=== PATIENT | female | born 1955 | race Caucasian/White ===

== ENCOUNTER 2017-12-15 14:04 | Emergency (ER) | payer OTHER ==
[~2017-12-15] VITALS: Ht 167.6 cm; Wt 90.7 kg
[~2017-12-15 14:04] MED LIST: AMIT75TA PO; ATOR40TA PO; DILT180C2 PO; FLEC100T PO; METF500T4 PO; METH-3 PO; METO25TA4 PO; MONT10TA6 PO; SULI200T2 PO; SUMA50TA3 PO
[2017-12-15 14:24] VITALS: BP 175/80
[2017-12-15] MEDS ORDERED: FENO160T PO (14:32)
[2017-12-15] MEDS ORDERED: SOTA80TA PO (14:32)
[2017-12-15] MEDS ORDERED: RIVA10TA PO (14:32)
[2017-12-15] MEDS ORDERED: ROPI0.5T PO (14:32)
[2017-12-15] MEDS ORDERED: DIPY75TA PO (14:32)
--- NOTE | 2017-12-15 14:33 | NUR ---
ARRIVAL PATIENT ARRIVED TO ED[facility] AMBULATORY WITH FAMILY, C/O OF MIGRAINE THAT STARTED THIS MORNING, DOES HAVE A HISTORY OF MIGRAINES AND TOOK IMITREX WITH NO RELIEF. CAME TO ED FOR EVAL.
[2017-12-15] MEDS ORDERED: PHENERGAN IM STA (14:53)
[2017-12-15] MEDS ORDERED: NUBAIN IM STA (14:53)
--- NOTE | 2017-12-15 14:59 | ER.PDOC ---
General Chief Complaint: Headache Stated Complaint: MIGRANE Time seen by MD: 14:54 Source: patient Exam Limitations: no limitations History of Present Illness Initial Comments Migraine headache since this morning. Headache similar to previous migraine. Severity/Quality: moderate Prior Headaches/Recent Trauma: chronic headaches, occasional headaches Associated Symptoms: nausea/vomiting, sensitivity to light Prior symptoms/Treatment: Similar symptoms previous Allergies: Coded Allergies: aspirin (Verified Allergy, Severe, Anaphylaxis Shock, 07/07/14) morphine (Verified Allergy, Mild, Nausea, 07/07/14) codeine (Verified Adverse Reaction, Mild, Nausea, 07/07/14) Home Meds Reported Medications Rivaroxaban (XARELTO) 10 Mg Tablet, 1 TAB PO DAILY, #7 TAB 12/15/17 Ropinirole Hcl (REQUIP) 0.5 Mg Tablet, 1 TAB PO HS, #30 TAB 2 Refills 12/15/17 Dipyridamole (DIPYRIDAMOLE) 75 Mg Tablet, 75 MG PO DAILY24, TABLET 12/15/17 Fenofibrate (FENOFIBRATE) 160 Mg Tablet, 1 TAB PO DAILY, #90 TAB 3 Refills 12/15/17 Sotalol Hcl (SOTALOL) 80 Mg Tablet, 1 TAB PO BID, #180 TAB 3 Refills 12/15/17 Methocarbamol (ROBAXIN) 500 Mg Tablet, 1 TAB PO TID, #90 TAB 11/16/15 Montelukast Sodium (SINGULAIR) 10 Mg Tablet, 1 TAB PO DAILY, #90 TAB 1 Refill 11/16/15 Atorvastatin 40MG (LIPITOR 40MG) 40 Mg Tablet, 1 TAB PO HS, #90 TAB 1 Refill 11/16/15 Metformin Hcl (METFORMIN HCL) 500 Mg Tablet, 2 TAB PO BID, #60 TAB 3 Refills 11/16/15 Amitriptyline Hcl (AMITRIPTYLINE HCL) 75 Mg Tablet, 1 TAB PO HS, #30 TAB 3 Refills 11/16/15 Diltiazem Hcl (CARDIZEM CD) 180 Mg Cap.er.24h, 1 CAP PO DAILY, #90 CAP 1 Refill 07/07/14 Sumatriptan Succinate (IMITREX) 50 Mg Tablet, 50 MG PO Y for PAIN, TABLET 07/07/14 Discontinued Reported Medications Sulindac (SULINDAC) 200 Mg Tablet, 200 MG PO BID, TABLET 11/16/15 Flecainide Acetate (FLECAINIDE ACETATE) 100 Mg Tablet, 1 TAB PO BID, #60 TAB 5 Refills 07/07/14 Metoprolol Tartrate 25MG (LOPRESSER 25MG) 25 Mg Tablet, 1 TAB PO BID, #180 TAB 1 Refill 07/07/14 Past Medical History Medical History: asthma, cardiac problems, other (MIgraine) Surgical History: cardiac cath, appendectomy, , hysterectomy, knee Social History Smoking: non-smoker Alcohol Use: none Drug Use: none Review of Systems Constitutional: no symptoms reported Eyes: see HPI Respiratory: no symptoms reported Cardiovascular: no symptoms reported Gastrointestinal: see HPI Genitourinary: no symptoms reported All Other Systems: Reviewed and Negative Physical Exam General Appearance: No Apparent Distress, WD/WN ENT: nml ENT inspection Neck: nml inspection, Supple Cardiovascular: Normal Peripheral Pulses, Regular Rate, Rhythm, No Edema, No Gallop, No JVD, No Murmur Respiratory: chest non-tender, lungs clear, normal breath sounds, no respiratory distress, no accessory muscle use Gastrointestinal: Normal Bowel Sounds, No Organomegaly, No Pulsatile Mass, Non Tender, Soft Back: Normal Inspection, No CVA Tenderness, No Vertebral Tenderness Extremities: Normal Range of Motion, Non-Tender, Normal Inspection, No Pedal Edema, No Calf Tenderness, Normal Capillary Refill Psychiatric: Alert, Oriented x 3 Cranial Nerves: Normal Hearing, Normal Speech, PERRL Motor/Sensory: No Motor Deficit, No Sensory Deficit, No Pronator Drift, Negative Babinski's Sign Skin: Warm/Dry, Normal Color Progress Progress Patient refused to have a head CT done. Departure Time of Disposition: 14:58 Disposition: 01 HOME, SELF-CARE Impression: Primary Impression: Migraine Qualified Codes: G43.911 - Migraine, unspecified, intractable, with status migrainosus Condition: Improved Referrals: ISRAEL ROYAL (PCP) PRIMARY CARE PROVIDER Additional Instructions: Continue home medications F/U with your PCP in 2-3 days Duration or Time Spent with Pa: 30 mins MAX KEY MD Dec 15, 2017 14:59
[2017-12-15] MEDS ORDERED: PHENERGAN ONE (15:00)
[2017-12-15] MEDS ORDERED: NUBAIN ONE (15:00)
[2017-12-15 15:37] VITALS: BP 157/75
[2017-12-15 15:43] VITALS: BP 157/75
== END 2017-12-15 15:37 | disposition home or self-care (01) ==
LOC: ER 14:04
DX: G43.909 Migraine, unspecified, not intractable, without status migrainosus (principal); J45.909 Unspecified asthma, uncomplicated; Z88.5 Allergy status to narcotic agent; Z90.710 Acquired absence of both cervix and uterus; Z79.899 Other long term (current) drug therapy; Z88.8 Allergy status to other drugs, medicaments and biological substances
CPT/HCPCS: 96372 ×2; 99284; J2300; J2550

== ENCOUNTER 2020-11-12 15:26 | Emergency (ER) | payer MEDICARE, OTHER ==
[~2020-11-12] VITALS: Ht 170.2 cm; Wt 81.6 kg
[~2020-11-12 15:26] MED LIST changes: +DIPY75TA PO; +FENO160T PO; +METF500T17 PO; -METF500T4 PO; +RIVA10TA PO; +ROPI0.5T PO; +SOTA80TA PO
--- NOTE | 2020-11-12 15:30 | NUR ---
ARRIVAL PT ARRIVED TO ED WITH C/O HEADACHE THAT STARTED AROUND 1000. PT STATES PAIN IS ON ENTIRE HEAD WITH LIGHT AND SOUND SENSATIVITY AND VOMITTING. PT REPORTS TAKING IMMATREX WITH NO RELIEF. BEDSIDE MONITORS APPLIED. VITAL SIGNS STABLE. BED IN LOW LOCKED POSITION. DAUGHTER AT BEDSIDE.
[2020-11-12 15:37] VITALS: BP 181/69
[2020-11-12] MEDS ORDERED: SUBLIMAZE IM STA (15:42)
[2020-11-12] MEDS ORDERED: BENADRYL IM STA (15:42)
[2020-11-12] MEDS ORDERED: PHENERGAN IM STA (15:42)
[2020-11-12] MEDS ORDERED: SUBLIMAZE ONE (15:47)
[2020-11-12] MEDS ORDERED: PHENERGAN ONE (15:47)
[2020-11-12] MEDS ORDERED: BENADRYL ONE (15:47)
--- NOTE | 2020-11-12 15:47 | ER.PDOC ---
General Chief Complaint: Requesting Medical Care Stated Complaint: MIGRANE Time seen by MD: 15:39 Source: patient Exam Limitations: no limitations History of Present Illness Initial Comments 65-year-old female presents to the emergency department with complaint of severe migraine headache. Her last migraine headache similar to this was 2 years ago. Headache started this morning unilateral, but gradually progressed to bilateral throughout the day. It was unrelieved with her usual dose of Imitrex at home. She has photophobia and some nausea but no vomiting. She denies any acute visual change. She denies any fever or neck pain or stiffness. She has had a similar headache to this in the past. She does have a positive history of migraine headaches. Timing/Duration: 4-6 hours Severity/Quality: severe, constant Prior Headaches/Recent Trauma: no recent headache/trauma, occasional headaches Associated Symptoms: nausea/vomiting (nausea without vomiting), sensitivity to light Prior symptoms/Treatment: Similar symptoms previous Allergies: Coded Allergies: aspirin (Verified Allergy, Severe, Anaphylaxis Shock, 07/07/14) morphine (Verified Allergy, Mild, Nausea, 07/07/14) codeine (Verified Adverse Reaction, Mild, Nausea, 07/07/14) Home Meds Reported Medications Rivaroxaban (XARELTO) 10 Mg Tablet, 1 TAB PO DAILY, #7 TAB 12/15/17 Ropinirole Hcl (REQUIP) 0.5 Mg Tablet, 1 TAB PO HS, #30 TAB 2 Refills 12/15/17 Dipyridamole (DIPYRIDAMOLE) 75 Mg Tablet, 75 MG PO DAILY24, TABLET 12/15/17 Fenofibrate (FENOFIBRATE) 160 Mg Tablet, 1 TAB PO DAILY, #90 TAB 3 Refills 12/15/17 Sotalol Hcl (SOTALOL) 80 Mg Tablet, 1 TAB PO BID, #180 TAB 3 Refills 18 Methocarbamol (ROBAXIN) 500 Mg Tablet, 1 TAB PO TID, #90 TAB 16 Montelukast Sodium (SINGULAIR) 10 Mg Tablet, 1 TAB PO DAILY, #90 TAB 1 Refill 11/16/15 Atorvastatin 40MG (LIPITOR 40MG) 40 Mg Tablet, 1 TAB PO HS, #90 TAB 1 Refill 11/16/15 Metformin Hcl (METFORMIN HCL) 500 Mg Tablet, 2 TAB PO BID, #60 TAB 3 Refills 11/16/15 Amitriptyline Hcl (AMITRIPTYLINE HCL) 75 Mg Tablet, 1 TAB PO HS, #30 TAB 3 Refills 11/16/15 Diltiazem Hcl (CARDIZEM CD) 180 Mg Cap.er.24h, 1 CAP PO DAILY, #90 CAP 1 Refill 07/07/14 Sumatriptan Succinate (IMITREX) 50 Mg Tablet, 50 MG PO PRN for PAIN, TABLET 07/07/14 Past Medical History Medical History: other (migraine headaches) Surgical History: cardiac cath, appendectomy, , hysterectomy, knee Family History Significant Family History: no pertinent family hx Social History Smoking: non-smoker Alcohol Use: none Drug Use: none Review of Systems Constitutional: denies no symptoms reported, denies see HPI, denies chills, denies diaphoresis, denies fever, denies malaise, denies weakness, denies other Eyes: denies no symptoms reported, denies see HPI, denies blindness, denies blurred vision, denies drainage, denies decreased acuity, denies foreign body sensation, denies inflammation, denies pain; photophobia; denies previous injur y, denies shadows, denies tunnel vision, denies vision change, denies contact lenses, denies glasses, denies other Ears, Nose, Mouth, Throat: denies no symptoms reported, denies see HPI, denies ear pain, denies ear discharge, denies nose pain, denies nose discharge, denies epistaxis, denies mouth pain, denies mouth swelling, denies loose teeth, denies throat pain, denies throat swelling Respiratory: denies no symptoms reported, denies see HPI, denies cough, denies orthopnea, denies shortness of breath, denies stridor, denies wheezing, denies other Cardiovascular: denies no symptoms reported, denies see HPI, denies chest pain, denies edema, denies palpitations, denies syncope, denies other Gastrointestinal: denies no symptoms reported, denies see HPI, denies abdominal pain, denies constipation, denies diarrhea, denies nausea, denies vomiting, denies other Musculoskeletal: denies no symptoms reported, denies see HPI, denies back pain, denies gout, denies joint pain, denies joint swelling, denies muscle pain, denies muscle stiffness, denies neck pain, denies other Skin: denies no symptoms reported, denies see HPI, denies change in color, denies change in hair/nails, denies dryness, denies lesions, denies lumps, denies rash, denies other Psychiatric/Neurological: denies no symptoms reported, denies see HPI, denies anxiety, denies depressed, denies emotional problems; headache; denies numbness, denies paresthesia, denies pre-existing deficit, denies seizure, denies ting ling, denies tremors, denies weakness, denies other All Other Systems: Reviewed and Negative Physical Exam General Appearance: No Apparent Distress, WD/WN Head/Eyes: no nystagmus, PERRL ENT: nml ENT inspection, pharynx nml Neck: nml inspection, Supple Cardiovascular: Regular Rate, Rhythm, No Murmur Respiratory: normal breath sounds, no respiratory distress, no accessory muscle use Gastrointestinal: Normal Bowel Sounds, No Organomegaly Extremities: Non-Tender, Normal Inspection, No Pedal Edema, No Calf Tenderness Psychiatric: Alert, Oriented x 3 Cranial Nerves: Normal Hearing, Normal Speech, PERRL Motor/Sensory: No Motor Deficit Skin: Warm/Dry, Normal Color Results/Orders Results/Orders Orders - ALIYA ROQUE DO Promethazine Hcl (Phenergan) (11/12/20 15:42) Diphenhydramine Hcl (Benadryl) (11/12/20 15:42) Fentanyl Citrate/Pf (Sublimaze) (11/12/20 15:42) Ct Head Wo Contrast (11/12/20 17:13) Diazepam (Valium) (11/12/20 17:13) Vital Signs Date Time Temp Pulse Resp B/P (MAP) Pulse Ox O2 Delivery O2 Flow Rate FiO2 11/12/20 16:30 98.3 76 18 173/75 (107) 95 Room Air 11/12/20 15:37 98.3 74 18 95 11/12/20 15:37 98.3 74 18 181/69 (106) 95 Room Air 11/12/20 15:37 98.3 74 18 Administered Medications Medications (Trade) Dose Ordered Sig/Leighann Route PRN Reason Start Time Stop Time Status Last Admin Dose Admin Diazepam (Valium) 10 mg STAT STAT IM 11/12/20 17:13 11/12/20 17:14 UNV 11/12/20 17:16 10 MG Diphenhydramine HCl (Benadryl) 50 mg STAT STAT IM 11/12/20 15:42 11/12/20 15:43 UNV 11/12/20 15:55 50 MG Fentanyl Citrate (Sublimaze) 100 mcg STAT STAT IM 11/12/20 15:42 11/12/20 15:43 UNV 11/12/20 15:56 100 MCG Promethazine HCl (Phenergan) 50 mg STAT STAT IM 11/12/20 15:42 11/12/20 15:43 UNV 11/12/20 15:55 50 MG Progress Progress patient refused to leave after injections, stating she was unchanged from arrival; I explained I had given maximum doses of phenergan, benadryl and fentanyl and offered IM benzo for muscle relaxation and decided to scan her head to be sure there is no bleeding; patient somewhat improved after valium administration and desires to try to go home to rest EKG/XRAY/CT/US CT Comments: CT brain normal ER DEPART Departure Time of Disposition: 17:46 Disposition: 01 HOME, SELF-CARE Impression: Primary Impression: Migraine Additional Impression: Tension headache Condition: Stable Patient Instructions: Migraine Headache, Tension Headache Referrals: ISRAEL ROYAL (PCP) PRIMARY CARE PROVIDER Additional Instructions: Home to rest in a dark quiet place, no TV, no radio, no telephone, no computer, no crying children. Return to the emergency department if headache escalates or worsens, acute visual change, fever greater than 101.3, or neck pain or stiffness. Follow-up with your primary care physician later this week for reevaluation. Duration or Time Spent with Pa: 45 min Problem Qualifiers Primary Impression: Migraine Migraine type: without aura Status migrainosus presence: without status migrainosus Intractability: not intractable Qualified Codes: G43.009 - Migraine without aura, not intractable, without status migrainosus ALIYA ROQUE DO Nov 12, 2020 15:47
[2020-11-12 16:30] VITALS: BP 173/75
[2020-11-12] MEDS ORDERED: VALIUM IM STA (17:13)
[2020-11-12] MEDS ORDERED: VALIUM ONE (17:16)
--- NOTE | 2020-11-12 17:31 | NUR ---
CT PT BACK FROM CT.
--- NOTE | 2020-11-12 17:39 | DIREP ---
PROCEDURE:CT HEAD WITHOUT CONTRAST TECHNIQUE:Axial cuts were obtained through the head, without intravenous contrast material. The images were viewed at brain and bone settings. COMPARISON:MR, MRI BRAIN W/WO, 10/14/2019, 03:12 PM. [facility] MRI and Spiral CT, MR, MRI BRAIN W/WO, 10/08/2020, 02:57 PM. INDICATIONS:severe headache FINDINGS: VENTRICLES:Normal. CEREBRUM:Normal. The small hyperintensities noted in the periventricular deep white matter on MRI scans of the brain dated 10/14/2019 and 10/08/[address] CEREBELLUM:Normal. BRAINSTEM:Normal. SKULL:Normal. SINUSES:Normal. OTHER:Negative. CONCLUSION: 1. Normal CT scan of the brain. Dictated by: Aleksey Hamilton M.D. on 11/12/2020 at 05:36 PM
[2020-11-12 17:50] VITALS: BP 160/63
== END 2020-11-12 17:53 | disposition home or self-care (01) ==
LOC: ER 15:26
DX: G44.209 Tension-type headache, unspecified, not intractable (principal); G43.009 Migraine without aura, not intractable, without status migrainosus; Z79.01 Long term (current) use of anticoagulants; Z79.84 Long term (current) use of oral hypoglycemic drugs; Z79.899 Other long term (current) drug therapy; Z88.5 Allergy status to narcotic agent; Z88.6 Allergy status to analgesic agent; Z90.710 Acquired absence of both cervix and uterus
CPT/HCPCS: 70450; 96372; 99284; J1200; J2550; J3010; J3360

== ENCOUNTER 2020-11-13 18:59 | Emergency (ER) | payer MEDICARE, OTHER ==
[~2020-11-13] VITALS: Ht 170.2 cm; Wt 81.6 kg
[2020-11-13 21:22] VITALS: BP 156/65
[2020-11-13] MEDS ORDERED: NS 1000ML 1,000 ML IV STA (21:22)
[2020-11-13] MEDS ORDERED: TORADOL IV STA (21:22)
[2020-11-13] MEDS ORDERED: PHENERGAN IV STA (21:22)
[2020-11-13] MEDS ORDERED: BENADRYL IV STA (21:22)
[2020-11-13] MEDS ORDERED: SUBLIMAZE IV STA (21:22)
--- NOTE | 2020-11-13 21:32 | ER.PDOC ---
General Chief Complaint: Headache Stated Complaint: MIGRAINE Time seen by MD: 21:25 Source: patient Exam Limitations: no limitations History of Present Illness Initial Comments 65-year-old female presents with a history of recurrent migraine headache. She was seen here last night by me for the same headache. Headache has now been present for 3 days. The medication she received last night intramuscularly did not give any relief. She continues to have persistent nausea severe photophobia and unrelieved migraine headache. She has taken her Imitrex at home without relief. The headache is similar to previous migraine headaches. She denies any fever, neck pain or stiffness, or any other concerns associated with potential meningitis. Timing/Duration: constant (x 3 days) Severity/Quality: severe, constant (bilateral headache) Prior Headaches/Recent Trauma: no recent headache/trauma, occasional headaches Associated Symptoms: nausea/vomiting, sensitivity to light Modifying Factors: worse with cold therapy, worse with exposure to light, worse with immobilization, worse with medication, worse with movement, worse with rest, worse with other, worse with noise, worse with position Prior symptoms/Treatment: Similar symptoms previous, Recenly Seen, Treated by Doctor (here last night for same) Allergies: Coded Allergies: aspirin (Verified Allergy, Severe, Anaphylaxis Shock, 07/07/14) morphine (Verified Allergy, Mild, Nausea, 07/07/14) codeine (Verified Adverse Reaction, Mild, Nausea, 07/07/14) Home Meds Reported Medications Rivaroxaban (XARELTO) 10 Mg Tablet, 1 TAB PO DAILY, #7 TAB 12/15/17 Ropinirole Hcl (REQUIP) 0.5 Mg Tablet, 1 TAB PO HS, #30 TAB 2 Refills 12/15/17 Dipyridamole (DIPYRIDAMOLE) 75 Mg Tablet, 75 MG PO DAILY24, TABLET 12/15/17 Fenofibrate (FENOFIBRATE) 160 Mg Tablet, 1 TAB PO DAILY, #90 TAB 3 Refills 12/15/17 Sotalol Hcl (SOTALOL) 80 Mg Tablet, 1 TAB PO BID, #180 TAB 3 Refills 18 Methocarbamol (ROBAXIN) 500 Mg Tablet, 1 TAB PO TID, #90 TAB 11/16/15 Montelukast Sodium (SINGULAIR) 10 Mg Tablet, 1 TAB PO DAILY, #90 TAB 1 Refill 11/16/15 Atorvastatin 40MG (LIPITOR 40MG) 40 Mg Tablet, 1 TAB PO HS, #90 TAB 1 Refill 11/16/15 Metformin Hcl (METFORMIN HCL) 500 Mg Tablet, 2 TAB PO BID, #60 TAB 3 Refills 11/16/15 Amitriptyline Hcl (AMITRIPTYLINE HCL) 75 Mg Tablet, 1 TAB PO HS, #30 TAB 3 Refills 11/16/15 Diltiazem Hcl (CARDIZEM CD) 180 Mg Cap.er.24h, 1 CAP PO DAILY, #90 CAP 1 Refill 07/07/14 Sumatriptan Succinate (IMITREX) 50 Mg Tablet, 50 MG PO PRN for PAIN, TABLET 07/07/14 Past Medical History Medical History: other (migraine headaches) Surgical History: appendectomy, , hysterectomy, shoulder Family History Significant Family History: no pertinent family hx Social History Smoking: non-smoker Alcohol Use: none Drug Use: none Review of Systems Constitutional: denies no symptoms reported, denies see HPI, denies chills, denies diaphoresis, denies fever, denies malaise, denies weakness, denies other Eyes: photophobia Ears, Nose, Mouth, Throat: denies no symptoms reported, denies see HPI, denies ear pain, denies ear discharge, denies nose pain, denies nose discharge, denies epistaxis, denies mouth pain, denies mouth swelling, denies loose teeth, denies throat pain, denies throat swelling Respiratory: denies no symptoms reported, denies see HPI, denies cough, denies orthopnea, denies shortness of breath, denies stridor, denies wheezing, denies other Cardiovascular: denies no symptoms reported, denies see HPI, denies chest pain, denies edema, denies palpitations, denies syncope, denies other Gastrointestinal: nausea, vomiting Genitourinary: denies no symptoms reported, denies see HPI, denies discharge, denies dysuria, denies frequency, denies hematuria, denies pain, denies other Musculoskeletal: denies no symptoms reported, denies see HPI, denies back pain, denies gout, denies joint pain, denies joint swelling, denies muscle pain, denies muscle stiffness, denies neck pain, denies other Skin: denies no symptoms reported, denies see HPI, denies change in color, denies change in hair/nails, denies dryness, denies lesions, denies lumps, denies rash, denies other Psychiatric/Neurological: headache All Other Systems: Reviewed and Negative Physical Exam General Appearance: No Apparent Distress (appears acutely uncomfortable), WD/WN Head/Eyes: eyes nml inspection, no facial swelling, no nystagmus, PERRL ENT: nml ENT inspection, pharynx nml Neck: nml inspection, Supple (no nuchal rigidity) Cardiovascular: Regular Rate, Rhythm, No Murmur Respiratory: lungs clear, normal breath sounds, no respiratory distress, no accessory muscle use Gastrointestinal: Normal Bowel Sounds, Non Tender, Soft Extremities: Non-Tender, Normal Inspection, No Pedal Edema, No Calf Tenderness Psychiatric: Alert, Oriented x 3 Cranial Nerves: Normal Hearing, Normal Speech, PERRL Motor/Sensory: No Motor Deficit Skin: Warm/Dry, Normal Color Results/Orders Results/Orders Orders - ALIYA ROQUE DO Saline Lock (11/13/20 21:22) 0.9 % Sodium Chloride (Ns 1000ml) (11/13/20 21:22) Fentanyl Citrate/Pf (Sublimaze) (11/13/20 21:22) Diphenhydramine Hcl (Benadryl) (11/13/20 21:22) Promethazine Hcl (Phenergan) (11/13/20 21:22) Ketorolac Tromethamine (Toradol) (11/13/20 21:22) 0.9 % Sodium Chloride (Ns 1000ml) (11/13/20 21:47) Diphenhydramine Hcl (Benadryl) (11/13/20 21:47) Ketorolac Tromethamine (Toradol) (11/13/20 21:47) Promethazine Hcl (Phenergan) (11/13/20 21:48) Fentanyl Citrate/Pf (Sublimaze) (11/13/20 21:48) Vital Signs Date Time Temp Pulse Resp B/P (MAP) Pulse Ox O2 Delivery O2 Flow Rate FiO2 11/13/20 22:03 98.3 68 18 148/67 (94) 94 Room Air 11/13/20 21:22 98.3 73 18 11/13/20 21:22 98.3 73 18 156/65 (95) 94 Room Air 11/13/20 21:22 98.3 73 18 94 Administered Medications Medications (Trade) Dose Ordered Sig/Leighann Route PRN Reason Start Time Stop Time Status Last Admin Dose Admin Diphenhydramine HCl (Benadryl) 50 mg STAT STAT IV 11/13/20 21:22 11/13/20 21:25 DC 11/13/20 22:00 50 MG Fentanyl Citrate (Sublimaze) 100 mcg STAT STAT IV 11/13/20 21:22 11/13/20 21:25 DC 11/13/20 22:00 100 MCG Ketorolac Tromethamine (Toradol) 30 mg STAT STAT IV 11/13/20 21:22 11/13/20 21:25 DC 11/13/20 22:00 30 MG Promethazine HCl (Phenergan) 25 mg STAT STAT IV 11/13/20 21:22 11/13/20 21:25 DC 11/13/20 22:00 25 MG Sodium Chloride 1,000 ml @ 1,200 mls/hr Q50M STAT IV 11/13/20 21:22 11/13/20 22:11 DC 11/13/20 22:00 1,200 MLS/HR Progress Progress CT brain done here last night was negative for acute pathology. IV medications given tonight have given near complete relief of pain. Patient is requesting to d/c home at 2225 ER DEPART Departure Time of Disposition: 22:26 Disposition: 01 HOME, SELF-CARE Impression: Primary Impression: Migraine Condition: Improved Patient Instructions: Recurrent Migraine Headache Referrals: JEFF MANLEY (PCP) PRIMARY CARE PROVIDER Additional Instructions: Home to rest in a dark quiet place. No television, no radio, no computer, no video games, no crying children. Drink plenty of fluids in the following days. Follow-up with your primary care physician later this week. Return to the emergency department for any emergent concerns. Duration or Time Spent with Pa: 30 min Problem Qualifiers Primary Impression: Migraine Migraine type: without aura Status migrainosus presence: with status migrainosus Intractability: intractable Qualified Codes: G43.011 - Migraine without aura, intractable, with status migrainosus ALIYA ROQUE DO Nov 13, 2020 21:32
[2020-11-13] MEDS ORDERED: NS 1000ML 1,000 ML ONE (21:47)
[2020-11-13] MEDS ORDERED: TORADOL ONE (21:47)
[2020-11-13] MEDS ORDERED: BENADRYL ONE (21:47)
[2020-11-13] MEDS ORDERED: SUBLIMAZE ONE (21:48)
[2020-11-13] MEDS ORDERED: PHENERGAN ONE (21:48)
[2020-11-13 22:03] VITALS: BP 148/67
[2020-11-13 22:24] VITALS: BP 136/58
== END 2020-11-13 22:39 | disposition home or self-care (01) ==
LOC: ER 18:59
DX: G43.011 Migraine without aura, intractable, with status migrainosus (principal); Z79.01 Long term (current) use of anticoagulants; Z79.1 Long term (current) use of non-steroidal anti-inflammatories (NSAID); Z79.899 Other long term (current) drug therapy; Z88.5 Allergy status to narcotic agent; Z88.6 Allergy status to analgesic agent; Z90.710 Acquired absence of both cervix and uterus; Z79.84 Long term (current) use of oral hypoglycemic drugs
CPT/HCPCS: 96361; 96374; 96375; 99284; J1200; J1885; J2550; J3010; J7030

== ENCOUNTER 2021-06-07 13:36 | Emergency (ER) | payer MEDICARE, OTHER ==
[~2021-06-07] VITALS: Ht 165.1 cm; Wt 72.6 kg
[2021-06-07 14:11] VITALS: BP 156/81
[2021-06-07 14:23] VITALS: BP 164/65
[2021-06-07] MEDS ORDERED: BENADRYL IV STA (14:31)
[2021-06-07] MEDS ORDERED: REGLAN IV STA (14:31)
--- NOTE | 2021-06-07 14:38 | ER.PDOC ---
General Chief Complaint: Headache Stated Complaint: MIGRAINE Time seen by MD: 14:20 Source: patient, family Exam Limitations: no limitations History of Present Illness Initial Comments This is a 66-year-old female who has a history of migraine headaches for her entire adult life as well as a history of atrial fibrillation and takes Xarelto. She complains of a migraine headache for the past 24 hours. It was gradual in onset and initially was only unilateral right-sided and throbbing but now is generalized. It did not respond to doses of Imitrex at home. She had nausea and vomiting during the night. There are no focal neurological deficits. She has photophobia and phonophobia. Allergies: Coded Allergies: aspirin (Verified Allergy, Severe, Anaphylaxis Shock, 07/07/14) morphine (Verified Allergy, Mild, Nausea, 07/07/14) codeine (Verified Adverse Reaction, Mild, Nausea, 07/07/14) Home Meds Reported Medications Rivaroxaban (XARELTO) 10 Mg Tablet, 1 TAB PO DAILY, #7 TAB 12/15/17 Ropinirole Hcl (REQUIP) 0.5 Mg Tablet, 1 TAB PO HS, #30 TAB 2 Refills 12/15/17 Dipyridamole (DIPYRIDAMOLE) 75 Mg Tablet, 75 MG PO DAILY24, TABLET 18 Fenofibrate (FENOFIBRATE) 160 Mg Tablet, 1 TAB PO DAILY, #90 TAB 3 Refills 18 Sotalol Hcl (SOTALOL) 80 Mg Tablet, 1 TAB PO BID, #180 TAB 3 Refills 18 Methocarbamol (ROBAXIN) 500 Mg Tablet, 1 TAB PO TID, #90 TAB 16 Montelukast Sodium (SINGULAIR) 10 Mg Tablet, 1 TAB PO DAILY, #90 TAB 1 Refill 16 Atorvastatin 40MG (LIPITOR 40MG) 40 Mg Tablet, 1 TAB PO HS, #90 TAB 1 Refill 16 Metformin Hcl (METFORMIN HCL) 500 Mg Tablet, 2 TAB PO BID, #60 TAB 3 Refills 16 Amitriptyline Hcl (AMITRIPTYLINE HCL) 75 Mg Tablet, 1 TAB PO HS, #30 TAB 3 Refills 16 Diltiazem Hcl (CARDIZEM CD) 180 Mg Cap.er.24h, 1 CAP PO DAILY, #90 CAP 1 Refill 07/07/14 Sumatriptan Succinate (IMITREX) 50 Mg Tablet, 50 MG PO PRN for PAIN, TABLET 07/07/14 Past Medical History Medical History: other Surgical History: , hysterectomy, other (Cardiac ablation for A. fib) Social History Smoking: non-smoker Alcohol Use: none Drug Use: none Review of Systems Constitutional: denies chills, denies fever Eyes: denies inflammation; photophobia Ears, Nose, Mouth, Throat: denies ear discharge, denies epistaxis Respiratory: denies cough, denies shortness of breath Cardiovascular: denies chest pain, denies syncope Gastrointestinal: denies abdominal pain, denies diarrhea; nausea, vomiting Genitourinary: denies dysuria, denies hematuria Musculoskeletal: denies back pain, denies joint pain Skin: denies lesions, denies rash Psychiatric/Neurological: headache; denies seizure Physical Exam General Appearance: Mild Distress, Other (Covering her eyes with her hand, appears photophobic) Head/Eyes: eyes nml inspection, no facial swelling, no nystagmus, PERRL ENT: nml ENT inspection, pharynx nml Neck: nml inspection, Supple Cardiovascular: Normal Peripheral Pulses, Regular Rate, Rhythm, No Edema Respiratory: lungs clear, normal breath sounds, no respiratory distress Gastrointestinal: Normal Bowel Sounds, Non Tender Back: Normal Inspection Extremities: Normal Range of Motion, Non-Tender, No Pedal Edema Psychiatric: Alert, Oriented x 3 Cranial Nerves: Normal Hearing, Normal Speech Motor/Sensory: No Motor Deficit, No Sensory Deficit, No Pronator Drift Skin: Warm/Dry, Normal Color Lymphatic: No Adenopathy Results/Orders Results/Orders Orders - KENIA WISE MD Start Iv (06/07/21 14:31) Cbc With Auto Diff (06/07/21 14:31) Comprehensive Metabolic Panel (06/07/21 14:31) Ct Head Wo Contrast (06/07/21 14:31) 0.9 % Sodium Chloride (Ns 1000ml) (06/07/21 15:00) Diphenhydramine Hcl (Benadryl) (06/07/21 14:31) Metoclopramide Hcl (Reglan) (06/07/21 14:31) 0.9 % Sodium Chloride (Ns 1000ml) (06/07/21 15:15) Diphenhydramine Hcl (Benadryl) (06/07/21 15:15) Ondansetron Hcl/Pf (Zofran) (06/07/21 15:29) Vital Signs Date Time Temp Pulse Resp B/P (MAP) Pulse Ox O2 Delivery O2 Flow Rate FiO2 06/07/21 14:23 98.3 61 18 164/65 (98) 98 Room Air 06/07/21 14:11 98.3 61 18 98 06/07/21 14:11 98.3 61 18 Administered Medications Medications (Trade) Dose Ordered Sig/Leighann Route PRN Reason Start Time Stop Time Status Last Admin Dose Admin Diphenhydramine HCl (Benadryl) 25 mg STAT STAT IV 06/07/21 14:31 06/07/21 14:35 DC 06/07/21 15:30 25 MG Metoclopramide HCl (Reglan) 10 mg STAT STAT IV 06/07/21 14:31 06/07/21 14:35 DC 06/07/21 15:30 10 MG Sodium Chloride 1,000 ml @ 999 mls/hr Q1H1M ONCE IV 06/07/21 15:00 06/07/21 16:00 DC 06/07/21 15:30 999 MLS/HR Laboratory Tests Test 06/07/21 14:45 White Blood Count 7.4 10^3/uL (4.5-11.0) Red Blood Count 3.90 10^6/uL (4.00-5.20) L Hemoglobin 11.6 g/dL (12.0-15.0) L Hematocrit 36.7 % (36.0-46.0) Mean Corpuscular Volume 94.1 fL (78-100) Mean Corpuscular Hemoglobin 29.7 pg (26-34) Mean Corpuscular Hemoglobin Concent 31.6 g/dL (33-36.5) L Red Cell Distribution Width 12.2 % (11.5-14.5) Platelet Count 305 10^3/uL (150-400) Mean Platelet Volume 9.6 fL (7.8-11.0) Neutrophils (%) (Auto) 57.8 % (41.0-85.0) Lymphocytes (%) (Auto) 31.8 % (24.0-44.0) Monocytes (%) (Auto) 7.2 % (5.0-12.0) Neutrophils # (Auto) 4.3 10^3/uL (1.8-7.7) Lymphocytes # (Auto) 2.34 10^3/uL1 (1.0-4.8) Monocytes # (Auto) 0.5 10^3/uL (0.3-0.8) Absolute Immature Granulocyte (auto 0.03 10^3 u/L (0-2) Absolute Eosinophils (auto) 0.2 10^3/uL (0.0-0.2) Immature Granulocytes % 0.40 % (0.00-0.50) Eosinophils % 2.4 % (0.0-5.0) Basophils % 0.4 % (0.0-0.2) H Basophils # 0.0 10^3/uL (0.0-0.1) Sodium Level 138 mmol/L (132-145) Potassium Level 3.7 mmol/L (3.6-5.2) Chloride Level 102.0 mmol/L (96-109) Carbon Dioxide Level 26.8 mmol/L (20.0-32) Anion Gap 12.9 Blood Urea Nitrogen 12 mg/dL (7-18) Creatinine 0.65 mg/dL (0.59-1.40) Estimated GFR () 110.0 (>/=60) Est GFR (CKD-EPI)(Non-Afr Brazilian) 90.9 (>/=60) BUN/Creatinine Ratio 18.0 Glucose Level 106 mg/dL (70-110) Calcium Level 9.1 mg/dL (8.4-10.5) Total Bilirubin 0.3 mg/dL (0.2-1.0) Aspartate Amino Transferase (AST) 15 U/L (0-35) Alanine Aminotransferase (ALT) 22 U/L (12-78) Alkaline Phosphatase 49 U/L (50-136) L Total Protein 6.8 g/dL (6.4-8.2) Albumin 3.5 g/dL (3.4-5.0) Globulin 3.3 Albumin/Globulin Ratio 1.060 Progress Progress 1630: Patient appears comfortable and states headache resolved. ER DEPART Departure Time of Disposition: 16:36 Disposition: 01 HOME / SELF CARE / HOMELESS Impression: Primary Impression: Migraine Condition: Stable Patient Instructions: Migraine Headache Referrals: JEFF MANLEY (PCP) PRIMARY CARE PROVIDER Duration or Time Spent with Pa: 10 KENIA WISE MD Jun 07, 2021 14:38
[2021-06-07 14:51] LABS: BASOPHIL % 0.4 % (0.0-0.2); EOSINOPHIL # 0.2 10^3/uL (0.0-0.2); EOSINOPHIL % 2.4 % (0.0-5.0); LYMPHOCYTES # 2.34 10^3/uL1 (1.0-4.8); LYMPHOCYTES % 31.8 % (24.0-44.0); MEAN CORP HGB 29.7 pg (26-34); MONOCYTES # 0.5 10^3/uL (0.3-0.8); MONOCYTES % 7.2 % (5.0-12.0); NEUTROPHIL # 4.3 10^3/uL (1.8-7.7); NEUTROPHILS % 57.8 % (41.0-85.0); PLATELET COUNT 305 10^3/uL (150-400); RED CELL DISTRIBUTION WIDTH 12.2 % (11.5-14.5)
[2021-06-07] MEDS ORDERED: NS 1000ML 1,000 ML IV ONE (15:00)
--- NOTE | 2021-06-07 15:01 | DIREP ---
PROCEDURE:CT HEAD WITHOUT CONTRAST TECHNIQUE:Axial cuts were obtained through the head, without intravenous contrast material. The images were viewed at brain and bone settings. COMPARISON:[facility], CT, CT HEAD BRAIN W/O CONTRAST, 11/12/2020, 05:29 PM. INDICATIONS:headache on Xarelto FINDINGS: VENTRICLES:Normal. CEREBRUM:There is no evidence of intraparenchymal or extra-axial hemorrhage. No midline shift or focal mass effect is seen. CEREBELLUM:Normal. BRAINSTEM:Normal. SKULL:Normal. SINUSES:Normal. OTHER:Negative. CONCLUSION: 1. CT scan of the brain is unremarkable and appears unchanged since 11/12/2020. Dictated by: Aleksey Hamilton M.D. on 06/07/2021 at 02:59 PM
[2021-06-07 15:06] LABS: CALCIUM 9.1 mg/dL (8.4-10.5); CARBON DIOXIDE 26.8 mmol/L (20.0-32)
[2021-06-07] MEDS ORDERED: BENADRYL ONE (15:15)
[2021-06-07] MEDS ORDERED: NS 1000ML 1,000 ML ONE (15:15)
[2021-06-07 15:20] VITALS: BP 150/62
[2021-06-07] MEDS ORDERED: ZOFRAN ONE (15:29)
[2021-06-07 16:40] VITALS: BP 142/60
== END 2021-06-07 16:55 | disposition home or self-care (01) ==
LOC: ER 13:36
DX: G43.909 Migraine, unspecified, not intractable, without status migrainosus (principal); I48.91 Unspecified atrial fibrillation; Z79.01 Long term (current) use of anticoagulants; Z79.84 Long term (current) use of oral hypoglycemic drugs; Z79.899 Other long term (current) drug therapy; Z88.5 Allergy status to narcotic agent; Z88.6 Allergy status to analgesic agent; Z90.710 Acquired absence of both cervix and uterus
CPT/HCPCS: 36415; 70450; 80053; 85025; 96361; 96374; 96375; 99284; J1200; J2405; J7030

== ENCOUNTER 2022-10-30 07:08 | Inpatient (IN) | payer MEDICARE, OTHER ==
[~2022-10-30] VITALS: Ht 172.7 cm; Wt 87.2 kg
[2022-10-30 07:08] VITALS: BP 138/47
[2022-10-30] MEDS ORDERED: ZOFRAN IV STA ×2 (07:39→11:05)
[2022-10-30] MEDS ORDERED: NS 1000ML 1,000 ML IV STA (07:39)
[2022-10-30] MEDS ORDERED: DEMEROL IV STA (07:39)
--- NOTE | 2022-10-30 07:43 | ER.PDOC ---
General Chief Complaint: Female Urogenital Problems Stated Complaint: FEMALE Time seen by MD: 07:41 Source: patient Exam Limitations: no limitations History of Present Illness Initial Comments Lower back/bilateral flank pain since last night. Patient has nausea and vomiting. She has a history of kidney stones. No numbness or tingling of lower extremities. No urinary or fecal incontinence. Severity/Quality: severe, sharpness Associated Symptoms: lower back pain Allergies: Coded Allergies: aspirin (Verified Allergy, Severe, Anaphylaxis Shock, 07/07/14) morphine (Verified Allergy, Mild, Nausea, 07/07/14) codeine (Verified Adverse Reaction, Mild, Nausea, 07/07/14) Home Meds Reported Medications Rivaroxaban (XARELTO) 10 Mg Tablet, 1 TAB PO DAILY, #7 TAB 12/15/17 Ropinirole Hcl (REQUIP) 0.5 Mg Tablet, 1 TAB PO HS, #30 TAB 2 Refills 12/15/17 Dipyridamole (DIPYRIDAMOLE) 75 Mg Tablet, 75 MG PO DAILY24, TABLET 12/15/17 Fenofibrate (FENOFIBRATE) 160 Mg Tablet, 1 TAB PO DAILY, #90 TAB 3 Refills 12/15/17 Sotalol Hcl (SOTALOL) 80 Mg Tablet, 1 TAB PO BID, #180 TAB 3 Refills 18 Methocarbamol (ROBAXIN) 500 Mg Tablet, 1 TAB PO TID, #90 TAB 11/16/15 Montelukast Sodium (SINGULAIR) 10 Mg Tablet, 1 TAB PO DAILY, #90 TAB 1 Refill 11/16/15 Atorvastatin 40MG (LIPITOR 40MG) 40 Mg Tablet, 1 TAB PO HS, #90 TAB 1 Refill 11/16/15 Metformin Hcl (METFORMIN HCL) 500 Mg Tablet, 2 TAB PO BID, #60 TAB 3 Refills 11/16/15 Amitriptyline Hcl (AMITRIPTYLINE HCL) 75 Mg Tablet, 1 TAB PO HS, #30 TAB 3 Refills 11/16/15 Diltiazem Hcl (CARDIZEM CD) 180 Mg Cap.er.24h, 1 CAP PO DAILY, #90 CAP 1 Refill 07/07/14 Sumatriptan Succinate (IMITREX) 50 Mg Tablet, 50 MG PO PRN for PAIN, TABLET 07/07/14 Past Medical History Medical History: arrhythmia, asthma, hypertension Surgical History: appendectomy, Family History Significant Family History: no pertinent family hx Social History Smoking: non-smoker Alcohol Use: none Drug Use: none Review of Systems Constitutional: no symptoms reported EENTM: no symptoms reported Respiratory: no symptoms reported Cardiovascular: no symptoms reported Gastrointestinal: no symptoms reported Musculoskeletal: see HPI All Other Systems: Reviewed and Negative Physical Exam General Appearance: No Apparent Distress, WD/WN HEENT: PERRL/EOMI, Normal ENT Inspection, TMs Normal, Pharynx Normal Neck: Non-Tender, Normal Alignment Cardiovascular/Respiratory: Regular Rate, Rhythm, No M/R/G, Normal Peripheral Pulses, No JVD, Normal Breath Sounds, No Respiratory Distress Gastrointestinal: Normal Bowel Sounds, No Organomegaly, No Pulsatile Mass, Non Tender, Soft Back: CVA Tenderness (R), CVA Tenderness (L), Other (Paraspinous muscles of L- spine.) Extremities: No Evidence of Injury, Normal Range of Motion, Non-Tender, No Pedal Edema, Pelvis Stable Neuro/Psych: Alert, hanging flags decorator nml/symmetrical, mood/effect nml, No Motor/Sensory Deficits, Relexes nml Skin: Normal Color, Warm/Dry Results/Orders Results/Orders Orders - MAX KEY MD Cbc With Auto Diff (10/30/22 07:39) Comprehensive Metabolic Panel (10/30/22 07:39) PT (10/30/22 07:39) Partial Thromboplastin Time. (10/30/22 07:39) Urinalysis (10/30/22 07:39) Ct Abd/Pelvis Wo Iv Contrast (10/30/22 07:39) 0.9 % Sodium Chloride (Ns 1000ml) (10/30/22 07:39) Ondansetron Hcl/Pf (Zofran) (10/30/22 07:39) Meperidine Hcl/Pf (Demerol) (10/30/22 07:39) 0.9 % Sodium Chloride (Ns 1000ml) (10/30/22 07:45) Ondansetron Hcl/Pf (Zofran) (10/30/22 07:45) Meperidine Hcl/Pf (Demerol) (10/30/22 07:45) Urine Culture (10/30/22 07:30) Lipase. (10/30/22 08:52) Blood Culture (10/30/22 09:30) Piperacillin Sodium/Tazobactam (Zosyn 3. (10/30/22 09:30) 0.9 % Sodium Chloride (Ns 100ml) (10/30/22 09:34) Vital Signs Date Time Temp Pulse Resp B/P (MAP) Pulse Ox O2 Delivery O2 Flow Rate FiO2 10/30/22 07:08 98.1 70 18 96 10/30/22 07:08 98.1 70 18 138/47 (77) 96 Room Air* 0 21 10/30/22 07:08 98.1 70 18 Administered Medications Medications (Trade) Dose Ordered Sig/Leighann Route PRN Reason Start Time Stop Time Status Last Admin Dose Admin Meperidine HCl (Demerol) 50 mg STAT STAT IV 10/30/22 07:39 10/30/22 07:42 DC 10/30/22 07:51 50 MG Ondansetron HCl (Zofran) 4 mg STAT STAT IV 10/30/22 07:39 10/30/22 07:42 DC 10/30/22 07:51 4 MG Piperacillin Sod/ Tazobactam Sod 3.375 gm/Sodium Chloride 100 ml @ 200 mls/hr STAT STAT IV 10/30/22 09:30 10/30/22 09:59 10/30/22 09:39 200 MLS/HR Sodium Chloride 1,000 ml @ 1,200 mls/hr Q50M STAT IV 10/30/22 07:39 10/30/22 08:28 DC 10/30/22 07:51 1,200 MLS/HR Laboratory Tests Test 10/30/22 00:00 10/30/22 07:30 Urine Collection Type UNKNOWN Urine Color YELLOW Urine Appearance CLOUDY Urine Bilirubin NEGATIVE (NEGATIVE) Urine Ketones NEGATIVE (NEGATIVE) Urine Specific [place] 1.025 (1.005-1.030) Urine pH 5.5 (4.5-8.0) Urine Protein TRACE (NEGATIVE) Urine Urobilinogen 0.2 E.U./dL (0.2) Urine Nitrate POSITIVE (NEGATIVE) H Urine Leukocyte Esterase NEGATIVE (NEGATIVE) Urine Glucose (Auto)(UA) NEGATIVE (NEGATIVE) Urine Blood NEGATIVE (NEGATIVE) Urine RBC 0-2 RBC/HPF (NONE SEEN) Urine WBC 5-10 WBC/HPF (0-2) H Urine Squamous Epithelial Cells FEW (<=FEW) Urine Bacteria MANY (NONE SEEN) H White Blood Count 8.8 10^3/uL (4.5-11.0) Red Blood Count 3.56 10^6/uL (4.00-5.20) L Hemoglobin 10.7 g/dL (12.0-15.0) L Hematocrit 33.5 % (36.0-46.0) L Mean Corpuscular Volume 94.1 fL (78-100) Mean Corpuscular Hemoglobin 30.1 pg (26-34) Mean Corpuscular Hemoglobin Concent 31.9 g/dL (33-36.5) L Red Cell Distribution Width 13.0 % (11.5-14.5) Platelet Count 300 10^3/uL (150-400) Mean Platelet Volume 10.2 fL (7.8-11.0) Neutrophils (%) (Auto) 80.6 % (41.0-85.0) Lymphocytes (%) (Auto) 13.5 % (24.0-44.0) L Monocytes (%) (Auto) 4.2 % (5.0-12.0) L Neutrophils # (Auto) 7.1 10^3/uL (1.8-7.7) Lymphocytes # (Auto) 1.18 10^3/uL1 (1.0-4.8) Monocytes # (Auto) 0.4 10^3/uL (0.3-0.8) Absolute Immature Granulocyte (auto 0.04 10^3 u/L (0-2) Absolute Eosinophils (auto) 0.1 10^3/uL (0.0-0.2) Immature Granulocytes % 0.50 % (0.00-0.50) Eosinophils % 1.0 % (0.0-5.0) Basophils % 0.2 % (0.0-0.2) Basophils # 0.0 10^3/uL (0.0-0.1) Prothrombin Time 11.1 SEC (9.1-11.5) Prothrombin Time INR (Non-Therap) 1.1 Activated Partial Thromboplast Time 22.5 SEC (22.5-33.1) Sodium Level 140 mmol/L (132-145) Potassium Level 4.1 mmol/L (3.6-5.2) Chloride Level 104.0 mmol/L (96-109) Carbon Dioxide Level 28.2 mmol/L (20.0-32) Anion Gap 11.9 Blood Urea Nitrogen 18 mg/dL (7-18) Creatinine 0.82 mg/dL (0.59-1.40) Estimated GFR () 83.9 (>/=60) Est GFR (CKD-EPI)(Non-Afr Guyanese) 69.3 (>/=60) BUN/Creatinine Ratio 21.0 Glucose Level 164 mg/dL (70-110) H Calcium Level 8.9 mg/dL (8.4-10.5) Total Bilirubin 0.4 mg/dL (0.2-1.0) Aspartate Amino Transferase (AST) 27 U/L (0-35) Alanine Aminotransferase (ALT) 24 U/L (12-78) Alkaline Phosphatase 49 U/L (50-136) L Total Protein 6.8 g/dL (6.4-8.2) Albumin 3.8 g/dL (3.4-5.0) Globulin 3.0 Albumin/Globulin Ratio 1.[address] abdomen/pelvis: Subtle peripancreatic fat stranding. Please correlate with serum lipase to exclude potential subtle pancreatitis. 2. The gallbladder is distended with at least 1 tiny calculus within the dependent aspect. There is subtle gallbladder wall thickening with mild pericholecystic fat stranding, concerning for potential early cholecystitis in the appropriate clinical setting. Please correlate with clinical exam and appropriate laboratory studies. Consider further evaluation with dedicated right upper quadrant abdominal ultrasound as clinically warranted. 3. Punctate left nephrolithiasis without ureteral or bladder calculi. No hydronephrosis. Urinalysis consistent with UTI, chemistry show glucose of 164, rest of chemistry is unremarkable. CBC is normal. Lipase is reported as greater than 250 but the labeling specialist told me that the second dilation showed 4000+. I informed the hospitalist about this. Spoke with Dr. Dauhgerty who reviewed the CT scan and told me to admit the patient under the hospitalist and he will be consulting. Patient received IV fluids, Zofran, Demerol and Zosyn. ER DEPART Departure Time of Disposition: 09:56 Disposition: 09 ADMITTED INPATIENT Impression: Primary Impression: Cholelithiasis with acute cholecystitis Additional Impressions: Acute pancreatitis UTI (urinary tract infection) Condition: Improved Referrals: JEFF MANLEY (PCP) PRIMARY CARE PROVIDER Comments Admitted to Dr. Almazan, spoke to Dr. Daugherty who will be consulting. Duration or Time Spent with Pa: 60 min Problem Qualifiers Primary Impression: Cholelithiasis with acute cholecystitis Biliary obstruction: without biliary obstruction Qualified Codes: K80.00 - Calculus of gallbladder with acute cholecystitis without obstruction Additional Impressions: Acute pancreatitis Pancreatitis type: unspecified pancreatitis type Acute pancreatitis complication: no infection or necrosis Qualified Codes: K85.90 - Acute pancreatitis without necrosis or infection, unspecified UTI (urinary tract infection) Urinary tract infection type: site unspecified Hematuria presence: without hematuria Qualified Codes: N39.0 - Urinary tract infection, site not specified MAX KEY MD Oct 30, 2022 07:43
[2022-10-30] MEDS ORDERED: DEMEROL ONE (07:45)
[2022-10-30] MEDS ORDERED: ZOFRAN ONE ×2 (07:45→11:07)
[2022-10-30] MEDS ORDERED: NS 1000ML 1,000 ML ONE (07:45)
[2022-10-30 07:51] LABS: BASOPHIL % 0.2 % (0.0-0.2); EOSINOPHIL # 0.1 10^3/uL (0.0-0.2); LYMPHOCYTES # 1.18 10^3/uL1 (1.0-4.8); LYMPHOCYTES % 13.5 % (24.0-44.0); MEAN CORP HGB 30.1 pg (26-34); MONOCYTES # 0.4 10^3/uL (0.3-0.8); MONOCYTES % 4.2 % (5.0-12.0); NEUTROPHIL # 7.1 10^3/uL (1.8-7.7); NEUTROPHILS % 80.6 % (41.0-85.0)
[2022-10-30 07:59] LABS: BILIRUBIN,URINE NEGATIVE (NEGATIVE); UROBILINOGEN,URINE 0.2 E.U./dL (0.2)
[2022-10-30 08:07] LABS: CARBON DIOXIDE 28.2 mmol/L (20.0-32)
--- NOTE | 2022-10-30 08:24 | DIREP ---
PROCEDURE:CT ABDOMEN/PELVIS W/O CONTRAST COMPARISON:[facility], CT, CT ABD/PELVIS W/O, 07/03/2022, 03:32 PM. INDICATIONS:Lower back/bilateral flank pain TECHNIQUE:Axial images were created through the abdomen and pelvis without intravenous contrast material. No oral contrast was administered. Sagittal and coronal reconstructions were performed from source images. FINDINGS: LUNG BASES:No suspicious airspace consolidation or pleural effusion. LIVER:Suspect mild diffuse hepatic steatosis. No suspicious focal hepatic lesion. BILIARY:The gallbladder is mildly distended. There is at least 1 tiny calculus within the dependent aspect of the gallbladder. There does appear to be subtle hazy gallbladder wall thickening with subtle pericholecystic fat stranding, raising concern for potential early cholecystitis in the appropriate clinical setting. There is no significant intrahepatic or extrahepatic biliary ductal dilatation. PANCREAS:Very subtle peripancreatic fat stranding. The pancreas appears otherwise grossly unremarkable. SPLEEN:The spleen is not significantly enlarged. No focal splenic lesion identified. ADRENALS:The adrenal glands are unremarkable. URINARY TRACT:Punctate left nephrolithiasis. No ureteral or bladder calculi are identified. No hydronephrosis. Suspect small bilateral renal cysts. AORTA/VASCULAR:Fairly diffuse atherosclerotic calcifications. No aneurysmal dilatation. RETROPERITONEUM:No suspicious retroperitoneal lymphadenopathy. BOWEL/MESENTERY:No evidence for small bowel obstruction. No gross colonic abnormality. Nonvisualization of the appendix. No free air. ABDOMINAL WALL:No significant hernia. PELVIC ORGANS:Urinary bladder is decompressed, limiting evaluation. The uterus is absent. No free fluid. BONES:Degenerative changes of the spine. No acute abnormality. CONCLUSION: 1. Subtle peripancreatic fat stranding. Please correlate with serum lipase to exclude potential subtle pancreatitis. 2. The gallbladder is distended with at least 1 tiny calculus within the dependent aspect. There is subtle gallbladder wall thickening with mild pericholecystic fat stranding, concerning for potential early cholecystitis in the appropriate clinical setting. Please correlate with clinical exam and appropriate laboratory studies. Consider further evaluation with dedicated right upper quadrant abdominal ultrasound as clinically warranted. 3. Punctate left nephrolithiasis without ureteral or bladder calculi. No hydronephrosis. 4. Additional findings as discussed above. Dictated by: Attila Singh M.D. On 10/30/2022 at 08:11 AM
[2022-10-30] MEDS ORDERED: ZOSYN 3.375 GM 3.375 GM in NS 100ML 100 ML IV STA (09:30)
[2022-10-30] MEDS ORDERED: NS 100ML 100 ML IV ONE ×2 (09:34→21:25)
[2022-10-30] MEDS ORDERED: HNS 1000ML/KCL 20MEQ 1,000 ML IV STA (09:59)
--- NOTE | 2022-10-30 10:26 | NUR ---
CRITICAL LAB LIPASE OF [id number] REPORTED FROM LAB, REPEATED BACK, REPORTED TO EDP.
[2022-10-30] MEDS ORDERED: DILAUDID IV STA (11:05)
[2022-10-30] MEDS ORDERED: DILAUDID ONE ×2 (11:07→20:08)
[2022-10-30 12:00] VITALS: BP 148/66
[2022-10-30] MEDS ORDERED: DOXY25TA49 PO (12:04)
[2022-10-30] MEDS ORDERED: TRAM50TA PO (12:04)
[2022-10-30] MEDS ORDERED: PROM25TA10 PO (12:04)
[2022-10-30] MEDS ORDERED: [UNRECOGNIZED DRUG - CODE] PO (12:04)
[2022-10-30] MEDS ORDERED: DIGO125T3 PO (12:04)
[2022-10-30] MEDS ORDERED: METH-621 PO (12:04)
[2022-10-30] MEDS ORDERED: GABA600T7 PO (12:04)
[2022-10-30] MEDS ORDERED: LISI5TAB18 PO (12:04)
[2022-10-30] MEDS ORDERED: FLUT1AER IH (12:04)
--- NOTE | 2022-10-30 12:04 | NUR ---
ARRIVAL AT 114
[2022-10-30] MEDS ORDERED: DULCOLAX PO ONE (13:14)
--- NOTE | 2022-10-30 13:14 | PCM.HP ---
HISTORY & PHYSICAL HISTORY & PHYSICAL DATE OF ADMISSION: 10/30/2022 CHIEF COMPLAINT: Back pain HISTORY OF PRESENT ILLNESS: Patient is a 67-year-old lady past medical history of diabetes, history of atrial fibrillation, hypertension presented to the ER with complaint of lower back pain. Patient reports awakening about 130 this morning with bilateral lower back pain radiating to the front with associated vomiting. Symptoms and pain did not improve and around 6 AM she was brought to the ER for further evaluation. Per CT imaging found to have mildly distended gallbladder with wall thickening and subdural pericolic fat stranding, tiny calculus dependent aspect findings suggestive of early cholecystitis. And subtle peripancreatic fat stranding. Patient had an elevated lipase of greater than 4000. Surgeon, Dr. Daugherty, has been consulted for early acute cholecystitis. ALLERGIES: Codeine and aspirin for which the reaction is respiratory distress PCP: Dr. Nguyen in [place] and sees Dr. Kumar (production line technician) in [place] [facility]: [facility] CURRENT MEDICATIONS: List of medications reviewed by me PAST MEDICAL HISTORY: Atrial fibrillation, hypertension, diabetes, type II, hyperlipidemia SOCIAL HISTORY: Former smoker, quit 25 years ago, denies alcohol and IV illicit drug use. Patient is , lives with . Does not use walker or cane, works as a volunteer FAMILY HISTORY: Hypertension and mother from pancreatic cancer. Father from stroke REVIEW OF SYSTEMS: 10 point review of systems negative per HPI VITAL SIGNS: Vital Signs Date Time Temp Pulse Resp B/P (MAP) Pulse Ox O2 Delivery O2 Flow Rate FiO2 10/30/22 12:29 Room Air 10/30/22 12:00 98.0 75 18 148/66 (93) 98 Room Air* 0 21 10/30/22 07:08 98.1 70 18 96 10/30/22 07:08 98.1 70 18 138/47 (77) 96 Room Air* 0 21 10/30/22 07:08 98.1 70 18 PHYSICAL EXAMINATION: General: Patient awake, alert, no acute distress HEENT: Head atraumatic, PERRL, EOMI, oropharynx clear Neck: Supple Heart: Normal S1 and S2 Lungs: Good air entry bilaterally, no rhonchi or wheeze Abdomen: Protuberant, positive bowel sounds, mild tenderness right upper quadrant to palpation Extremities: Moves all well, no gross deformity, no edema Neuro: Grossly intact Skin: Intact, no rashes or breakdown Psych: Mood appropriate, patient cooperative with exam LABORATORY DATA: Laboratory Tests Test 10/30/22 00:00 10/30/22 07:30 Urine Collection Type UNKNOWN Urine Color YELLOW Urine Appearance CLOUDY Urine Bilirubin NEGATIVE Urine Ketones NEGATIVE Urine Specific Monette 1.025 Urine pH 5.5 Urine Protein TRACE Urine Urobilinogen 0.2 E.U./dL Urine Nitrate POSITIVE Urine Leukocyte Esterase NEGATIVE Urine Glucose (Auto)(UA) NEGATIVE Urine Blood NEGATIVE Urine RBC 0-2 RBC/HPF Urine WBC 5-10 WBC/HPF Urine Squamous Epithelial Cells FEW Urine Bacteria MANY White Blood Count 8.8 10^3/uL Red Blood Count 3.56 10^6/uL Hemoglobin 10.7 g/dL Hematocrit 33.5 % Mean Corpuscular Volume 94.1 fL Mean Corpuscular Hemoglobin 30.1 pg Mean Corpuscular Hemoglobin Concent 31.9 g/dL Red Cell Distribution Width 13.0 % Platelet Count 300 10^3/uL Mean Platelet Volume 10.2 fL Neutrophils (%) (Auto) 80.6 % Lymphocytes (%) (Auto) 13.5 % Monocytes (%) (Auto) 4.2 % Neutrophils # (Auto) 7.1 10^3/uL Lymphocytes # (Auto) 1.18 10^3/uL1 Monocytes # (Auto) 0.4 10^3/uL Absolute Immature Granulocyte (auto 0.04 10^3 u/L Absolute Eosinophils (auto) 0.1 10^3/uL Immature Granulocytes % 0.50 % Eosinophils % 1.0 % Basophils % 0.2 % Basophils # 0.0 10^3/uL Prothrombin Time 11.1 SEC Prothrombin Time INR (Non-Therap) 1.1 Activated Partial Thromboplast Time 22.5 SEC Sodium Level 140 mmol/L Potassium Level 4.1 mmol/L Chloride Level 104.0 mmol/L Carbon Dioxide Level 28.2 mmol/L Anion Gap 11.9 Blood Urea Nitrogen 18 mg/dL Creatinine 0.82 mg/dL Estimated GFR () 83.9 Est GFR (CKD-EPI)(Non-Afr Montenegrin) 69.3 BUN/Creatinine Ratio 21.0 Glucose Level 164 mg/dL Calcium Level 8.9 mg/dL Total Bilirubin 0.4 mg/dL Aspartate Amino Transf (AST/SGOT) 27 U/L Alanine Aminotransferase (ALT/SGPT) 24 U/L Alkaline Phosphatase 49 U/L Total Protein 6.8 g/dL Albumin 3.8 g/dL Globulin 3.0 Albumin/Globulin Ratio 1.266 Lipase 4495 U/L Current Medications Medications (Trade) Dose Ordered Sig/Leighann Route PRN Reason Start Time Stop Time Status Last Admin Dose Admin Sodium Chloride 1,000 ml @ 1,200 mls/hr Q50M STAT IV 10/30/22 07:39 10/30/22 08:28 DC 10/30/22 07:51 Ondansetron HCl (Zofran) 4 mg STAT STAT IV 10/30/22 07:39 10/30/22 07:42 DC 10/30/22 07:51 Meperidine HCl (Demerol) 50 mg STAT STAT IV 10/30/22 07:39 10/30/22 07:42 DC 10/30/22 07:51 Sodium Chloride 1,000 ml @ ud STK-MED ONCE .ROUTE 10/30/22 07:45 10/30/22 07:45 DC Ondansetron HCl (Zofran) 4 mg STK-MED ONCE .ROUTE 10/30/22 07:45 10/30/22 07:45 DC Meperidine HCl (Demerol) 50 mg STK-MED ONCE .ROUTE 10/30/22 07:45 10/30/22 07:46 DC Piperacillin Sod/ Tazobactam Sod 3.375 gm/Sodium Chloride 100 ml @ 200 mls/hr STAT STAT IV 10/30/22 09:30 10/30/22 09:59 DC 10/30/22 09:39 Sodium Chloride 100 ml @ ud STK-MED ONCE IV 10/30/22 09:34 10/30/22 09:34 DC Potassium Chloride/Sodium Chloride 1,000 ml @ 100 mls/hr Q10H STAT IV 10/30/22 09:59 10/30/22 19:58 Hydromorphone HCl (Dilaudid) 1 mg STAT STAT IV 10/30/22 11:05 10/30/22 11:06 DC 10/30/22 11:17 Ondansetron HCl (Zofran) 4 mg STAT STAT IV 10/30/22 11:05 10/30/22 11:06 DC 10/30/22 11:17 Ondansetron HCl (Zofran) 4 mg STK-MED ONCE .ROUTE 10/30/22 11:07 2 11:07 DC Hydromorphone HCl (Dilaudid) 2 mg STK-MED ONCE .ROUTE 10/30/22 11:07 2 11:07 DC IMAGING: CT abdomen and pelvis showed mildly distended gallbladder, wall thickening, subtle pericolic fat stranding. 1 tiny calculus in dependent aspect. Findings suggestive of early cholecystitis. Subtle peripancreatic fat stranding, normal- appearing pancreas. SUMMARY: 67-year-old female presenting with back pain found to have acute early cholecystitis possible pancreatitis due to gallstone. ASSESSMENT/PLAN: Cholecystitis/ pancreatitis -keep n.p.o., Ice chipsokay, continue pain management, antiemetics, IV fluids and Zosyn. Dr. Daugherty has been consulted. A-fibcurrently rate controlled, Continue current home medications, will hold Xarelto and start Lovenox with likely scheduled cholecystectomy soon. Diabetes, type IIcontinue home medications, will monitor blood sugars as patient current n.p.o. Hypertensionblood pressure currently controlled, continue home medications Hyperlipidemia - continue statin GI/DVT prophylaxis with PPI and Lovenox, Xarelto on hold Total time spent talking and examining the patient, reviewing laboratory results, imaging, ER notes, discussing case with RN placing orders and documentation was 60 minutes PRISCILLA REYES MD Oct 30, 2022 13:14
[2022-10-30] MEDS: ZOFRAN IV PRN ×3 (13:25→22:17)
[2022-10-30] MEDS ORDERED: MYLANTA PO PRN (13:30)
[2022-10-30] MEDS ORDERED: MILK OF MAGNESIA PO PRN (13:30)
[2022-10-30] MEDS ORDERED: PHENERGAN PO PRN (13:30)
[2022-10-30] MEDS ORDERED: ROBAXIN PO PRN (13:30)
[2022-10-30] MEDS ORDERED: TYLENOL PO PRN ×2 (13:30)
[2022-10-30] MEDS ORDERED: RESTORIL PO PRN (13:30)
[2022-10-30] MEDS: LOVENOX SQ SCH (14:29)
[2022-10-30] MEDS: BREO ELLIPTA 100-25 MCG INH IH SCH (14:30)
[2022-10-30] MEDS: NEURONTIN PO SCH ×2 (15:24→21:19)
[2022-10-30] MEDS: ZOSYN 3.375 GM 3.375 GM in NS 100ML 100 ML IV SCH ×2 (15:24→21:21)
[2022-10-30 15:43] VITALS: BP 149/40
[2022-10-30] MEDS: OFIRMEV IV SCH (17:08)
[2022-10-30] MEDS: ACCU-CHEK MC SCH (18:00)
[2022-10-30] MEDS: ULTRAM PO PRN (18:27)
[2022-10-30] MEDS: LACTATED RINGERS 1,000 ML IV SCH (18:35)
[2022-10-30 20:01] VITALS: BP 151/73
[2022-10-30] MEDS: DILAUDID IV PRN (20:09)
[2022-10-30] MEDS: LIPITOR PO SCH (21:19)
[2022-10-30] MEDS: BETAPACE PO SCH (21:20)
[2022-10-31] VITALS (15 sets, daily range): BP systolic 118–161; BP diastolic 43–74
[2022-10-31] MEDS: LOVENOX SQ SCH ×2 (01:22→13:28)
[2022-10-31] MEDS: ZOSYN 3.375 GM 3.375 GM in NS 100ML 100 ML IV SCH ×4 (01:22→19:52)
[2022-10-31] MEDS: ZOFRAN IV PRN ×2 (02:30→09:19)
[2022-10-31] MEDS: LACTATED RINGERS 1,000 ML IV SCH ×2 (03:37→10:30)
[2022-10-31 05:03] LABS: BASOPHIL % 0.3 % (0.0-0.2); EOSINOPHIL # 0.2 10^3/uL (0.0-0.2); EOSINOPHIL % 2.5 % (0.0-5.0); LYMPHOCYTES # 1.41 10^3/uL1 (1.0-4.8); MEAN CORP HGB 30.2 pg (26-34); MONOCYTES # 0.5 10^3/uL (0.3-0.8); MONOCYTES % 7.7 % (5.0-12.0); NEUTROPHIL # 4.6 10^3/uL (1.8-7.7); NEUTROPHILS % 68.5 % (41.0-85.0); PLATELET COUNT 235 10^3/uL (150-400); RED CELL DISTRIBUTION WIDTH 12.9 % (11.5-14.5)
[2022-10-31 05:18] LABS: CARBON DIOXIDE 27.5 mmol/L (20.0-32)
[2022-10-31] MEDS: ACCU-CHEK MC SCH ×4 (05:53→19:48)
[2022-10-31] MEDS: DILAUDID IV PRN ×3 (05:56→16:38)
[2022-10-31] MEDS: OFIRMEV IV SCH ×3 (08:17→17:35)
[2022-10-31] MEDS: PROTONIX IV IV SCH (08:18)
[2022-10-31] MEDS: LANOXIN PO SCH (08:18)
[2022-10-31] MEDS: ZESTRIL PO SCH (08:18)
[2022-10-31] MEDS: CARDIZEM PO SCH (08:18)
[2022-10-31] MEDS: BETAPACE PO SCH ×2 (08:18→21:07)
[2022-10-31] MEDS: SINGULAIR PO SCH (09:00)
[2022-10-31] MEDS: TRICOR PO SCH (09:00)
[2022-10-31] MEDS: NEURONTIN PO SCH ×3 (09:00→21:07)
[2022-10-31] MEDS: DULCOLAX PO SCH (09:00)
--- NOTE | 2022-10-31 11:49 | PRM.PN ---
PROGRESS NOTE SUBJECTIVE Patient reports morning, still has had some nausea and vomiting, pain has improved. Patient seen by Dr. Daugherty previous evening, scheduled for possible cholecystectomy later today, if not in the morning. OBJECTIVE Vital Signs Date Time Temp Pulse Resp B/P (MAP) Pulse Ox O2 Delivery O2 Flow Rate FiO2 10/31/22 11:03 98.2 72 19 134/62 (86) 94 Room Air* 0 21 10/31/22 09:54 Room Air 10/31/22 08:18 145/53 10/31/22 08:18 71 145/53 PHYSICAL EXAMINATION: General: Patient awake, alert, no acute distress Heart: Normal S1 and S2 Lungs: Good air entry bilaterally, no rhonchi or wheeze Abdomen: Protuberant, positive bowel sounds, moderate tenderness right upper quadrant to palpation Extremities: Moves all well, no gross deformity, no edema Neuro: Grossly intact Laboratory Tests 10/30/22 15:36: Bedside Glucose 123H 10/31/22 00:07: Bedside Glucose 118H 10/31/22 04:37: White Blood Count 6.7, Red Blood Count 3.15L, Hemoglobin 9.5L, Hematocrit 29.5L, Mean Corpuscular Volume 93.7, Mean Corpuscular Hemoglobin 30.2, Mean Corpuscular Hemoglobin Concent 32.2L, Red Cell Distribution Width 12.9, Platelet Count 235, Mean Platelet Volume 10.1, Neutrophils (%) (Auto) 68.5, Lymphocytes (%) (Auto) 21.0L, Monocytes (%) (Auto) 7.7, Neutrophils # (Auto) 4.6, Lymphocytes # (Auto) 1.41, Monocytes # (Auto) 0.5, Absolute Immature Granulocyte (auto 0.02, Absolute Eosinophils (auto) 0.2, Immature Granulocytes % 0.30, Eosinophils % 2.5, Basophils % 0.3H, Basophils # 0.0, Sodium Level 141, Potassium Level 3.4L, Chloride Level 106.0, Carbon Dioxide Level 27.5, Anion Gap 10.9, Blood Urea Nitrogen 13, Creatinine 0.70, Estimated GFR () 100.7, Est GFR (CKD-EPI)(Non-Afr Burundian) 83.2, BUN/Creatinine Ratio 18.0, Glucose Level 119H, Calcium Level 8.4, Total Bilirubin 0.6, Aspartate Amino Transf (AST/SGOT) 48H, Alanine Aminotransferase (ALT/SGPT) 36, Alkaline Phosphatase 54, Total Protein 5.9L, Albumin 3.2L, Globulin 2.7, Albumin/Globulin Ratio 1.185, Lipase 670H ASSESSMENT Acute Cholecystitis/ pancreatitis A-fib Diabetes, type II Hypertension Hyperlipidemia PLAN Acute Cholecystitis/ pancreatitis -keep n.p.o., Ice chips, prn anti-emetics, continue pain management, antiemetics, IV fluids and Zosyn. lipase trending down. Dr. Daugherty following, possible cholecystectomy with cholangiogram later today of tomorrow. A-fibcurrently rate controlled, Continue current home medications, Xarelto on hold, continue Lovenox Diabetes, type IIcontinue home medications, will monitor blood sugars as patient current n.p.o. Hypertensionblood pressure currently controlled, continue home medications Hyperlipidemia - continue statin GI/DVT prophylaxis with PPI and Lovenox, Xarelto on hold Total time spent talking and examining the patient, reviewing laboratory results , imaging, discussing case with RN and surgeon, placing orders and documenting the the medical chart was 40 minutes PRISCILLA REYES MD Oct 31, 2022 11:49
--- NOTE | 2022-10-31 13:00 | NUR ---
DISCHARGE PLANNING CM VISITED WITH PATIENT AND SPOUSE REGARDING D/C PLAN AND NEEDS. PATIENT STATES SHE LIVES AT HOME WITH SPOUSE, IS NORMALLY INDEPENDENT OF ADL'S AND HAS DR MANLEY FOR PCP. PATIENT AND SPOUSE EDUCATED ON HH ANT PT. DENIED D/C NEEDS AT THIS TIME. GOAL IS FOR PATIENT TO RETURN HOME TO SELF-CARE ROUTINE. CM WILL CONTINUE TO FOLLOW FOR D/C PLAN AND NEEDS.
--- NOTE | 2022-10-31 13:38 | NUR ---
PATIENT OFF UNIT FOR SURGICAL PROCEDURE AT THIS TIME.
[2022-10-31] MEDS: BREO ELLIPTA 100-25 MCG INH IH SCH (14:30)
[2022-10-31] MEDS ORDERED: OFIRMEV 100 ML IV ONE ×2 (16:32→17:53)
[2022-10-31] MEDS ORDERED: DILAUDID ONE (16:32)
[2022-10-31] MEDS ORDERED: VENTOLIN IH ONE (17:49)
[2022-10-31] MEDS ORDERED: DECADRON ONE (17:53)
[2022-10-31] MEDS ORDERED: TORADOL ONE (17:53)
[2022-10-31] MEDS ORDERED: SUBLIMAZE ONE (17:53)
[2022-10-31] MEDS ORDERED: DIPRIVAN IV ONE (17:53)
[2022-10-31] MEDS ORDERED: BRIDION IV ONE (17:53)
[2022-10-31] MEDS ORDERED: XYLOCAINE 2% 5ML VIAL ONE (17:53)
[2022-10-31] MEDS ORDERED: ZOFRAN ONE (17:53)
[2022-10-31] MEDS ORDERED: ZEMURON IV ONE (17:53)
[2022-10-31] MEDS ORDERED: LACTATED RINGERS 1,000 ML ONE (17:54)
[2022-10-31] MEDS ORDERED: SODIUM CHLORIDE IRR BAG IR ONE (17:55)
[2022-10-31] MEDS ORDERED: SODIUM CHLORIDE IRR BOTTLE IR ONE (17:55)
[2022-10-31] MEDS ORDERED: VENTOLIN HFA IH ONE (18:00)
[2022-10-31] MEDS ORDERED: MEFOXIN ONE (18:20)
[2022-10-31] MEDS ORDERED: NS 100ML 100 ML IV ONE ×3 (18:20→19:49)
[2022-10-31] MEDS ORDERED: EXPAREL 266 MG/20 ML VIAL IJ ONE (18:27)
[2022-10-31] MEDS ORDERED: ISOTON GENTAMICIN 80 MG/100 ML 100 ML IV ONE (18:49)
[2022-10-31] MEDS ORDERED: MEFOXIN 2 GM in NS 100ML 100 ML IV ONE (19:00)
[2022-10-31] MEDS ORDERED: REGLAN ONE (20:29)
[2022-10-31] MEDS ORDERED: NS 1000ML 1,000 ML ONE (20:34)
[2022-10-31] MEDS ORDERED: REGLAN IV ONE (21:00)
[2022-10-31] MEDS: LIPITOR PO SCH (21:07)
--- NOTE | 2022-10-31 22:04 | DIREP ---
PROCEDURE:CHOLANGIOGRAM IN OR 1 SET COMPARISON:None. INDICATIONS:GALLSTONE 15.8mgy 42 secs flro 4images 30 cc [id number] TECHNIQUE:Intraoperative fluoroscopy FINDINGS: FLUOROSCOPIC TIME:42 seconds NUMBER OF IMAGES:4 CONTRAST VOLUME:30 cc INTRAHEPATIC DUCTS:Normal. EXTRAHEPATIC DUCTS:No duct dilatation. No stones. Contrast noted in duodenum CONCLUSION: Unremarkable intraoperative cholangiogram. Dictated by: Nelida Cadet MD on 10/31/2022 at 10:01 PM
--- NOTE | 2022-10-31 23:28 | OPH ---
DICTATOR NAME: Cm Daugherty DO PREOPERATIVE DIAGNOSES: Cholelithiasis with history of pancreatitis. POSTOPERATIVE DIAGNOSES: * Acute on chronic calculous cholecystitis. * History of diabetes. * History of pancreatitis. SURGEON: Cm Daugherty DO SENIOR ADVOCATE: OR staff. ANESTHESIA: General by Hector Avila CRNA plus local used on the field. PROCEDURE PERFORMED: Laparoscopic-assisted cholecystectomy with intraoperative cholangiogram as well as laparoscopic lysis of adhesions. SPECIMENS: Gallbladder to path with stones. ESTIMATED BLOOD LOSS: 29 mL. COUNTS: At the completion of the case, the counts were correct per OR staff. DESCRIPTION OF PROCEDURE: The patient is an extremely pleasant 67-year-old female, known from previous evaluation. Prior to procedure, informed consent was obtained. At the time of procedure, she was taken to the operative suite, placed in supine position. Preprocedure safety checklist and timeout completed. General anesthesia is obtained. The patient's abdomen was prepped and draped. Periumbilical region was localized and a 5 mm trocar was introduced into the abdomen with Endo camera visualization. Once in the abdomen, pneumoperitoneum was induced to 14 mmHg. There is noted to be moderate amount of adhesions associated with the anterior abdominal wall, periumbilical region. Subsequently, trocar placed in the epigastrium, a 12 mm and a 5 mm trocar was placed laterally in the right upper quadrant. With the camera placed in the lateral trocar site, the adhesions to the anterior abdominal wall that were previously entered with the trocar in the periumbilical region taken down gently using blunt dissection, electrocautery, and sharp dissection. Ultimately, these all proved to be adhesions of the omentum to the anterior abdominal wall. It was mobilized from the midline laterally to the right side of the abdominal cavity. There was No attached small bowel identified. Minimal bleeding identified. It was controlled with cautery. With adequate mobilization for exposure, the camera was placed in the periumbilical trocar and the patient was positioned appropriately. A final trocar was placed in the midline towards the right upper quadrant, the gallbladder was retracted to allow exposure. There were noted to be multiple adhesions of the omentum to the body of gallbladder, which were taken down using a combination of blunt dissection, sharp dissection, and electrocautery. Once the infundibulum was noted, a dilated lymph node was identified on the cystic artery. Subsequently, attention towards the gallbladder neck, which is slightly dilated. Once the gallbladder neck is isolated, it was clipped once proximally to the amount of inflammation associated with the portal region. A small enterotomy was created in the neck of the gallbladder and a cholangiogram catheter was advanced ultimately ended by the common bile duct. Intraoperative cholangiogram was performed. There was noted to be good flow distally. Initially, a small filling defect was identified that improves with flow of contrast. The patient repositioned with good flow of contrast retrograde in the intrahepatic radicals. Proves to be an adequately length cystic duct with the spinal valves identified. The cholangiogram catheter was removed. The patient repositioned. Two clips were placed on the cystic duct, it was divided sharply. Further dissection was made to isolate the cystic artery; however, the lymph node is allowed to remain. It was difficult to mobilize due to its close proximity to the larger vascular structures. With the cystic artery isolated, clipped twice proximally and once distally and divided with electrocautery. The gallbladder had been removed from the bed using electrocautery. Once complete, the wound was placed in an EndoCatch bag with the epigastric trocar and passed to the back table. The trocar was reinserted. The gallbladder fossa was copiously irrigated with sterile saline, inspected for bleeding. Any bleeding identified was controlled with electrocautery. With meticulous hemostasis noted, the irrigation and suction and closure pursued. With camera visualization, the remaining trocar sites were localized. Camera was placed in the epigastric trocar and three 5 mm trocars were removed without incident. No bleeding was identified. The final trocar was removed with camera visualization in the trocar tract. Trocar sites were all irrigated. The fascia on the epigastric incision was closed with 0 Vicryl suture. The skin incisions were closed with 4-0 Monocryl in subcuticular fashion. The patient was cleaned, Steri-Strips and bandage were applied. Drapes removed. The patient tolerated these procedures well. There were no acute complications noted. Ramos Hernandez. Cm Daugherty D.O., DR: MOSES/CHERRY MCDONNELL: [id number] RECEIPT: [id number] cc: Johnathan Nguyen MD [facility]
[2022-11-01] MEDS: OFIRMEV IV SCH ×3 (00:21→17:54)
--- NOTE | 2022-11-01 01:12 | CNH ---
DATE OF CONSULTATION: 10/31/2022 DICTATOR NAME: Cm Daugherty DO CHIEF COMPLAINT: Cholelithiasis. HISTORY OF PRESENT ILLNESS: This is a 67-year-old female who apparently has a history of AFib, came to the ER with primary lower back pain. She had significant nausea and vomiting. In the ER, she was noted to have elevated lipase and dilated gallbladder consistent with cholecystitis. She was admitted to the Med-Surg floor to the service of the hospitalist. I was able to see her last night and repeat evaluation today. ALLERGIES: INCLUDE CODEINE AND ASPIRIN. PAST MEDICAL HISTORY: Includes AFib, type 2 diabetes, hypertension, hyperlipidemia. PAST SURGICAL HISTORY: Includes . HOME MEDICATIONS: Per list. INPATIENT MEDICATIONS: Per NOV. SOCIAL HISTORY: Positive for smoked tobacco previously. No alcohol or illicit drug use. FAMILY HISTORY: Essentially noncontributory; however, there is family history of pancreatic cancer and father from stroke. REVIEW OF SYSTEMS: CONSTITUTIONAL: No fever, chills or weakness. ENDOCRINE: She has no thyroid disease. She has known diabetes. CARDIOVASCULAR: No chest pain or trouble breathing. She does have a history of AFib. PULMONARY: No dyspnea or cough. ABDOMEN: As per HPI. She reports pressure-like mid abdominal pain with posterior radiation, nausea and vomiting that has improved with IV fluid. PHYSICAL EXAMINATION: GENERAL: This is an alert, oriented, appropriate 67-year-old female, in no acute distress. I was able to evaluate her on 10/30 and again on the morning of 10/31. VITAL SIGNS: Current temperature is 97.9, pulse 71, blood pressure 145/53, respiratory rate is 16. HEENT: Normocephalic, atraumatic. [place] mucous membranes. NECK: Supple and soft. Trachea is midline. No JVD or thyromegaly. HEART: Has a regular rate and rhythm. LUNGS: Clear to auscultation bilaterally. ABDOMEN: The bowel sounds are positive. She has marked tenderness in the mid abdomen, right upper quadrant. EXTREMITIES: Show positive radial pulses bilaterally, positive dorsal pedal pulses bilaterally. NEUROLOGIC: She has no focal findings. Cranial nerves 2-12 grossly intact. SKIN AND INTEGUMENTARY: Warm and dry. LABORATORY STUDIES: Her white count has gone from 8.8 to 6.7; however, the hemoglobin has dropped from 10.7 to 9.5, platelets today are 235. Chemistry shows BUN of 30, creatinine 0.7. Lipase has improved from 4495 to 670. IMAGING: Shows pancreatic fat stranding, gallbladder is distended with calculus in the dependent portion. SURGICAL ASSESSMENTS: * Acute calculous cholecystitis. * Acute pancreatitis, improving. * History of diabetes. * Iatrogenic coagulopathy, on Xarelto. PLAN: * The patient was seen and examined. Chart is reviewed. * She is advised regarding risks, benefits and alternatives. * We will plan for a laparoscopic cholecystectomy as soon as able. Ramos Hernandez. Cm Daugherty D.O., DR: JORDAN/TASIA/ADA TID: [id number] RECEIPT: [id number]
[2022-11-01] MEDS: LOVENOX SQ SCH ×2 (01:15→14:30)
[2022-11-01] MEDS: ZOSYN 3.375 GM 3.375 GM in NS 100ML 100 ML IV SCH ×4 (01:15→20:34)
[2022-11-01 03:20] VITALS: BP 121/52
[2022-11-01] MEDS: ACCU-CHEK MC SCH ×5 (06:00→23:21)
[2022-11-01] MEDS: LACTATED RINGERS 1,000 ML IV SCH ×3 (06:14→20:56)
[2022-11-01 06:47] LABS: BASOPHIL % 0.7 % (0.0-0.2); EOSINOPHIL % 0.2 % (0.0-5.0); LYMPHOCYTES # 1.18 10^3/uL1 (1.0-4.8); LYMPHOCYTES % 20.2 % (24.0-44.0); MEAN CORP HGB 29.7 pg (26-34); MONOCYTES # 0.5 10^3/uL (0.3-0.8); MONOCYTES % 9.1 % (5.0-12.0); NEUTROPHILS % 68.9 % (41.0-85.0); PLATELET COUNT 205 10^3/uL (150-400); RED CELL DISTRIBUTION WIDTH 12.9 % (11.5-14.5)
[2022-11-01 06:48] LABS: CARBON DIOXIDE 21.4 mmol/L (20.0-32)
[2022-11-01 07:02] VITALS: BP 145/70
[2022-11-01] MEDS: PROTONIX IV IV SCH (08:04)
[2022-11-01] MEDS: TRICOR PO SCH (08:04)
[2022-11-01] MEDS: ZESTRIL PO SCH (08:04)
[2022-11-01] MEDS: CARDIZEM PO SCH (08:04)
[2022-11-01] MEDS: LANOXIN PO SCH (08:04)
[2022-11-01] MEDS: BETAPACE PO SCH ×2 (08:05→20:35)
[2022-11-01] MEDS: SINGULAIR PO SCH (08:05)
[2022-11-01] MEDS: NEURONTIN PO SCH ×3 (08:05→20:35)
[2022-11-01] MEDS: DULCOLAX PO SCH (08:05)
--- NOTE | 2022-11-01 10:59 | PRM.DC ---
Subjective Subjective Date of Discharge: Nov 01, 2022 Time of Request to Discharge: 13:40 Subjective HOSPITAL COURSE: Patient is a 67-year-old lady past medical history of diabetes, history of atrial fibrillation, hypertension presented to the ER with complaint of lower back pain. Please refer to H&P for further details. Per CT imaging found to have mildly distended gallbladder with wall thickening and subdural pericolic fat stranding, tiny calculus dependent aspect findings suggestive of early cholecystitis. And subtle peripancreatic fat stranding. Patient had an elevated lipase of greater than 4000. Patient was admitted and started treatment for acute cholecystitis and pancreatitis. Dr. Daugherty, surgeon, was consulted and patient underwent cholecystectomy with cholangiogram on 10/31/2022. Patient tolerated procedure well, was feeling better postop. Patient able to tolerate diet and had passage of gas and was stable for discharge home. Dispo: Home Condition: Fair Diet: Full liquids and advance as tolerated, avoid carbonation Activity: Ad maria guadalpue. Medications: Per med rec Follow-up: PCP within [address] Daugherty within 1 week. Patient History: FH: brain cancer G8 BROTHER FH: pancreatic cancer 32 MOTHER Exam Vital Signs Vital Signs Date Time Temp Pulse Resp B/P (MAP) Pulse Ox O2 Delivery O2 Flow Rate FiO2 11/01/22 08:04 145/70 11/01/22 08:04 65 11/01/22 07:43 Room Air 11/01/22 07:02 98.2 19 94 0 21 VTE VTE Risk Total Score: 2 VTE Risk Score VTE Risk: Score 0-1 = Low Risk (Aggressive mobilization; early ambulation; no VTE prophylaxis required) Score 2: Moderate Risk (Intermittent/Pneumatic Compression Device OR Lovenox/Heparin/Coumadin) Score 3-4: High Risk (Intermittent/Pneumatic Compression Device AND Lovenox/Heparin/Coumadin) Score > or =5: Highest Risk (Intermittent/Pneumatic Compression Device AND Lovenox/Heparin/Coumadin) Objective Vitals and I/O Vital Sign - Last 24 Hours 10/31/22 10/31/22 10/31/22 10/31/22 11:03 13:56 18:39 19:53 Temp 98.2 98.8 99.8 97.4 Pulse 72 66 66 Resp 19 18 18 B/P (MAP) 134/62 (86) 161/66 (97) 131/59 (83) Pulse Ox 94 93 94 O2 Delivery Room Air* Room Air Room Air O2 Flow Rate 0 FiO2 21 10/31/22 10/31/22 10/31/22 10/31/22 19:55 20:00 20:00 20:05 Pulse 72 69 70 Resp 16 16 16 B/P (MAP) 144/74 (97) 131/43 (72) 126/54 (78) Pulse Ox 92 94 94 O2 Delivery Room Air Room Air Room Air Room Air 10/31/22 10/31/22 10/31/22 10/31/22 20:10 20:15 20:20 20:25 Pulse 68 66 64 70 Resp 16 16 16 16 B/P (MAP) 135/53 (80) 129/62 (84) 136/68 (90) 118/72 (87) Pulse Ox 92 94 93 94 O2 Delivery Room Air Room Air Room Air Room Air 10/31/22 10/31/22 11/01/22 11/01/22 20:30 23:15 03:20 07:02 Temp 97.8 99.1 98.0 98.2 Pulse 66 66 63 65 Resp 16 20 18 19 B/P (MAP) 131/68 (89) 130/55 (80) 121/52 (75) 145/70 (95) Pulse Ox 95 98 94 94 O2 Delivery Room Air Nasal Cannula* Nasal Cannula* Room Air* O2 Flow Rate 2 2 0 FiO2 28 28 21 11/01/22 11/01/22 11/01/22 07:43 08:04 08:04 Pulse 65 B/P (MAP) 145/70 145/70 O2 Delivery Room Air Intake and Output 11/01/22 07:00 Intake Total 3425 ml Balance 3425 ml All Results(Lab/Rad) Laboratory Tests Test 10/31/22 14:05 10/31/22 20:01 10/31/22 21:05 11/01/22 05:35 Bedside Glucose 102 123 136 White Blood Count 5.8 10^3/uL Red Blood Count 3.06 10^6/uL Hemoglobin 9.1 g/dL Hematocrit 29.0 % Mean Corpuscular Volume 94.8 fL Mean Corpuscular Hemoglobin 29.7 pg Mean Corpuscular Hemoglobin Concent 31.4 g/dL Red Cell Distribution Width 12.9 % Platelet Count 205 10^3/uL Mean Platelet Volume 11.0 fL Neutrophils (%) (Auto) 68.9 % Lymphocytes (%) (Auto) 20.2 % Monocytes (%) (Auto) 9.1 % Neutrophils # (Auto) 4.0 10^3/uL Lymphocytes # (Auto) 1.18 10^3/uL1 Monocytes # (Auto) 0.5 10^3/uL Absolute Immature Granulocyte (auto 0.05 10^3 u/L Absolute Eosinophils (auto) 0.0 10^3/uL Immature Granulocytes % 0.90 % Eosinophils % 0.2 % Basophils % 0.7 % Basophils # 0.0 10^3/uL Sodium Level 139 mmol/L Potassium Level 4.2 mmol/L Chloride Level 105.0 mmol/L Carbon Dioxide Level 21.4 mmol/L Glucose Level 111 mg/dL Blood Urea Nitrogen 17 mg/dL Creatinine 0.84 mg/dL Calcium Level 8.2 mg/dL Anion Gap 16.8 Estimated GFR () 81.6 Est GFR (CKD-EPI)(Non-Afr Afghan) 67.4 BUN/Creatinine Ratio 20.0 Current Medications Medications (Trade) Dose Ordered Sig/Leighann Route PRN Reason Start Time Stop Time Status Last Admin Dose Admin Sodium Chloride 1,000 ml @ 1,200 mls/hr Q50M STAT IV 10/30/22 07:39 10/30/22 08:28 DC 10/30/22 07:51 Ondansetron HCl (Zofran) 4 mg STAT STAT IV 10/30/22 07:39 10/30/22 07:42 DC 10/30/22 07:51 Meperidine HCl (Demerol) 50 mg STAT STAT IV 10/30/22 07:39 10/30/22 07:42 DC 10/30/22 07:51 Sodium Chloride 1,000 ml @ ud STK-MED ONCE .ROUTE 10/30/22 07:45 10/30/22 07:45 DC Ondansetron HCl (Zofran) 4 mg STK-MED ONCE .ROUTE 10/30/22 07:45 10/30/22 07:45 DC Meperidine HCl (Demerol) 50 mg STK-MED ONCE .ROUTE 10/30/22 07:45 10/30/22 07:46 DC Piperacillin Sod/ Tazobactam Sod 3.375 gm/Sodium Chloride 100 ml @ 200 mls/hr STAT STAT IV 10/30/22 09:30 10/30/22 09:59 DC 10/30/22 09:39 Sodium Chloride 100 ml @ ud STK-MED ONCE IV 10/30/22 09:34 10/30/22 09:34 DC Potassium Chloride/Sodium Chloride 1,000 ml @ 100 mls/hr Q10H STAT IV 10/30/22 09:59 10/30/22 19:58 DC Hydromorphone HCl (Dilaudid) 1 mg STAT STAT IV 10/30/22 11:05 10/30/22 11:06 DC 10/30/22 11:17 Ondansetron HCl (Zofran) 4 mg STAT STAT IV 10/30/22 11:05 10/30/22 11:06 DC 10/30/22 11:17 Ondansetron HCl (Zofran) 4 mg STK-MED ONCE .ROUTE 10/30/22 11:07 10/30/22 11:07 DC Hydromorphone HCl (Dilaudid) 2 mg STK-MED ONCE .ROUTE 10/30/22 11:07 10/30/22 11:07 DC Piperacillin Sod/ Tazobactam Sod 3.375 gm/Sodium Chloride 100 ml @ 200 mls/hr Q6H IV 10/30/22 13:30 11/29/22 13:29 11/01/22 08:04 Ondansetron HCl (Zofran) 4 mg Q4H PRN IV NAUSEA / VOMITING 10/30/22 13:30 11/29/22 13:29 10/31/22 09:19 Bisacodyl (Dulcolax) 5 mg DAILY PO 10/31/22 09:00 11/30/22 08:59 11/01/22 08:05 Bisacodyl (Dulcolax) 5 mg 1314 ONCE PO 10/30/22 13:14 10/30/22 14:20 DC Atorvastatin Calcium (Lipitor) 40 mg HS PO 10/30/22 21:00 11/29/22 20:59 10/31/22 21:07 Digoxin (Lanoxin) 125 mcg DAILY PO 10/31/22 09:00 11/30/22 08:59 11/01/22 08:04 Diltiazem HCl (Cardizem) 180 mg DAILY PO 10/31/22 09:00 11/30/22 08:59 11/01/22 08:04 Fenofibrate (Tricor) 145 mg DAILY PO 10/31/22 09:00 11/30/22 08:59 11/01/22 08:04 Gabapentin (Neurontin) 600 mg TID PO 10/30/22 15:00 11/29/22 14:59 11/01/22 08:05 Lisinopril (Zestril) 5 mg DAILY PO 10/31/22 09:00 11/30/22 08:59 11/01/22 08:04 Methocarbamol (Robaxin) 500 mg TID PRN PO MUSCLE SPASM 10/30/22 13:30 11/29/22 13:29 Montelukast Sodium (Singulair) 10 mg DAILY PO 10/31/22 09:00 11/30/22 08:59 11/01/22 08:05 Promethazine HCl (Phenergan) 25 mg Q6H PRN PO NAUSEA / VOMITING 10/30/22 13:30 11/29/22 13:29 10/31/22 05:56 Sotalol HCl (Betapace) 80 mg BID PO 10/30/22 21:00 11/29/22 20:59 11/01/22 08:05 Tramadol HCl (Ultram) 50 mg TID PRN PO PAIN 4 - 6 10/30/22 13:30 11/29/22 13:29 10/30/22 18:27 Enoxaparin Sodium (Lovenox) 30 mg Q12H SQ 10/30/22 13:30 11/29/22 13:29 11/01/22 01:15 Pantoprazole Sodium (Protonix Iv) 40 mg DAILY IV 10/31/22 09:00 11/30/22 08:59 11/01/22 08:04 Miscellaneous Medication (Accu-Chek) 1 each Q6 MC 10/30/22 18:00 11/29/22 17:59 11/01/22 06:00 Acetaminophen (Tylenol) 650 mg Q6H PRN PO Temp >100.4 10/30/22 13:30 10/30/22 18:10 DC Acetaminophen (Tylenol) 650 mg Q6H PRN PO PAIN 1 - 3 10/30/22 13:30 10/30/22 18:10 DC Temazepam (Restoril) 15 mg HS PRN PO INSOMNIA 10/30/22 13:30 11/29/22 13:29 Magnesium Hydroxide (Milk Of Magnesia) 2,400 mg OT PRN PO CONSTIPATION 10/30/22 13:30 11/29/22 13:29 Acetaminophen (Ofirmev) 1,000 mg Q8H IV 10/30/22 17:00 11/29/22 16:59 11/01/22 00:21 Hydromorphone HCl (Dilaudid) 1 mg Q4H PRN IV PAIN 7 - 10 10/30/22 20:03 11/29/22 20:02 10/31/22 16:38 Hydromorphone HCl (Dilaudid) 2 mg STK-MED ONCE .ROUTE 10/30/22 20:08 10/30/22 20:08 DC Sodium Chloride 100 ml @ ud STK-MED ONCE IV 10/30/22 21:25 10/30/22 21:25 DC Hydromorphone HCl (Dilaudid) 2 mg STK-MED ONCE .ROUTE 10/31/22 16:32 10/31/22 16:33 DC Acetaminophen 100 ml @ ud STK-MED ONCE IV 10/31/22 16:32 10/31/22 16:33 DC Albuterol Sulfate (Ventolin) 2.5 mg STK-MED ONCE IH 10/31/22 17:49 10/31/22 17:50 DC Acetaminophen 100 ml @ ud STK-MED ONCE IV 10/31/22 17:53 10/31/22 17:53 DC Ketorolac Tromethamine (Toradol) 30 mg STK-MED ONCE .ROUTE 10/31/22 17:53 10/31/22 17:53 DC Lidocaine HCl (Xylocaine 2% 5ml Vial) 500 mg STK-MED ONCE .ROUTE 10/31/22 17:53 10/31/22 17:53 DC Ondansetron HCl (Zofran) 4 mg STK-MED ONCE .ROUTE 10/31/22 17:53 10/31/22 17:53 DC Fentanyl Citrate (Sublimaze) 50 mcg STK-MED ONCE .ROUTE 10/31/22 17:53 10/31/22 17:53 DC Propofol (Diprivan) 200 mg STK-MED ONCE IV 10/31/22 17:53 10/31/22 17:53 DC Rocuronium [place] (Zemuron) 100 mg STK-MED ONCE IV 10/31/22 17:53 10/31/22 17:53 DC Sodium Chloride (Sodium Chloride Irr Bag) 1,000 ml STK-MED ONCE IR 10/31/22 17:55 10/31/22 17:55 DC Sodium Chloride (Sodium Chloride Irr Bottle) 1,000 ml STK-MED ONCE IR 10/31/22 17:55 10/31/22 17:55 DC Albuterol Sulfate (Ventolin Hfa) 2 inh OT ONCE IH 10/31/22 18:00 10/31/22 20:10 DC 10/31/22 17:57 Cefoxitin Sodium (Mefoxin) 2 gm STK-MED ONCE .ROUTE 10/31/22 18:20 10/31/22 18:20 DC Sodium Chloride 100 ml @ ud STK-MED ONCE IV 10/31/22 18:20 10/31/22 18:20 DC Sodium Chloride 100 ml @ ud STK-MED ONCE IV 10/31/22 18:49 10/31/22 18:49 DC Gentamicin Sulfate/Sodium Chloride 100 ml @ ud STK-MED ONCE IV 10/31/22 18:49 10/31/22 18:50 DC Cefoxitin Sodium 2 gm/Sodium Chloride 100 ml @ 100 mls/hr OT ONCE IV 10/31/22 19:00 10/31/22 20:09 DC 10/31/22 18:08 Sodium Chloride 100 ml @ ud STK-MED ONCE IV 10/31/22 19:49 10/31/22 19:50 DC Metoclopramide HCl (Reglan) 10 mg STK-MED ONCE .ROUTE 10/31/22 20:29 10/31/22 20:29 DC Metoclopramide HCl (Reglan) 10 mg OT ONCE IV 10/31/22 21:00 10/31/22 21:01 DC 10/31/22 20:33 Sodium Chloride 1,000 ml @ ud STK-MED ONCE .ROUTE 10/31/22 20:34 10/31/22 20:35 DC Medication Reconciliation Scheduled Atorvastatin 40MG (Lipitor 40MG), 1 TAB PO HS, (Reported) Digoxin (Digoxin), 1 TAB PO DAILY, (Reported) Diltiazem Hcl (Cardizem Cd), 1 CAP PO DAILY, (Reported) Fenofibrate (Fenofibrate), 1 TAB PO DAILY, (Reported) Fluticasone/Vilanterol (Breo Ellipta 100-25 Mcg INH), 1 EACH IH DAILY24, (Reported) Gabapentin (Gabapentin), 1 TAB PO TID, (Reported) Lisinopril (Lisinopril), 1 TAB PO DAILY, (Reported) Metformin Hcl (Metformin Hcl), 2 TAB PO BID, (Reported) Methocarbamol (Methocarbamol), 500 MG PO PRN, (Reported) Montelukast Sodium (Singulair), 1 TAB PO DAILY, (Reported) Oxcarbazepine (Oxcarbazepine), 600 MG PO TID, (Reported) Promethazine Hcl (Promethazine Hcl), 25 MG PO PRN, (Reported) Rivaroxaban (Xarelto), 1 TAB PO DAILY, (Reported) Sotalol Hcl (Sotalol), 1 TAB PO BID, (Reported) Scheduled PRN Doxylamine Succinate (Unisom), 1 TAB PO HS PRN for INSOMNIA, (Reported) Tramadol Hcl (Tramadol Hcl), 1 TAB PO TID PRN for PRN, (Reported) Discontinued Medications Amitriptyline Hcl (Amitriptyline Hcl), 1 TAB PO HS, (Reported) Discontinued Reason: No Longer Taking Dipyridamole (Dipyridamole), 75 MG PO DAILY24, (Reported) Discontinued Reason: No Longer Taking Methocarbamol (Robaxin), 1 TAB PO TID, (Reported) Discontinued Reason: No Longer Taking Ropinirole Hcl (Requip), 1 TAB PO HS, (Reported) Discontinued Reason: No Longer Taking Sumatriptan Succinate (Imitrex), 50 MG PO for PAIN, (Reported) Discontinued Reason: No Longer Taking Plan Plan My Orders - PRISCILLA REYES MD Procedure Category Date Status Time Basic Metabolic Panel LAB 11/01/22 Complete 05:00 Hydromorphone Hcl PHA 10/31/22 Complete (Dilaudid) 16:32 Acetaminophen PHA 10/31/22 Complete (Ofirmev) 16:32 Albuterol Sulfate PHA 10/31/22 Complete (Ventolin) 17:49 Acetaminophen PHA 10/31/22 Complete (Ofirmev) 17:53 Sugammadex Sodium PHA 10/31/22 Complete ([place]rid[place]) 17:53 Ketorolac PHA 10/31/22 Complete Tromethamine (Toradol) 17:53 Lidocaine Hcl PHA 10/31/22 Complete (Xylocaine 2% 5ml 17:53 Dexamethasone Sodium PHA 10/31/22 Complete Phosphate (Decadron 17:53 Ondansetron Hcl/Pf PHA 10/31/22 Complete (Zofran) 17:53 Fentanyl Citrate/Pf PHA 10/31/22 Complete (Sublimaze) 17:53 Propofol (Diprivan) PHA 10/31/22 Complete 17:53 Rocuronium [place] PHA 10/31/22 Complete (Zemuron) 17:53 Ringer's PHA 10/31/22 Complete Solution,Lactated 17:54 Sodium Chloride Irrig PHA 10/31/22 Complete Solution (Sodium C 17:55 Sodium Chloride Irrig PHA 10/31/22 Complete Solution (Sodium C 17:55 Cefoxitin Sodium PHA 10/31/22 Complete (Mefoxin) 18:20 0.9 % Sodium Chloride PHA 10/31/22 Complete (Ns 100ml) 18:20 Bupivacaine PHA 10/31/22 Complete Liposome/Pf (Exparel 18:27 0.9 % Sodium Chloride PHA 10/31/22 Complete (Ns 100ml) 18:49 Gentamicin In Nacl, PHA 10/31/22 Complete Iso-Osm (Isoton Gent 18:49 0.9 % Sodium Chloride PHA 10/31/22 Complete (Ns 100ml) 19:49 Metoclopramide Hcl PHA 10/31/22 Complete (Reglan) 20:29 0.9 % Sodium Chloride PHA 10/31/22 Complete (Ns 1000ml) 20:34 Discharge DISCHARGE 11/01/22 Transmitted 10:42 PRISCILLA REYES MD Nov 01, 2022 10:59
[2022-11-01 11:11] VITALS: BP 147/54
[2022-11-01] MEDS: DILAUDID IV PRN ×2 (11:20→22:00)
[2022-11-01] MEDS: BREO ELLIPTA 100-25 MCG INH IH SCH (14:30)
--- NOTE | 2022-11-01 15:01 | NUR ---
AMBULATION PATIENT AMBULATING INDEPENDENTLY IN HALLWAY AT THIS TIME WITH SIGNIFICANT OTHER.
[2022-11-01 15:42] VITALS: BP 144/76
--- NOTE | 2022-11-01 16:18 | PRM.PN ---
PROGRESS NOTE SUBJECTIVE Addendum: Patient seen and examined earlier this morning, patient was feeling better, had flatus and tolerated clear liquid diet and discharge planning started and orders were placed. Few hours later patient had increased right upper quadrant pain, became pale, vital signs were stable. Dr. Daugherty was notified. We will continue to monitor, encourage increased ambulation, pain managed and we will see how patient does. Depending on how patient does, she may be observed overnight, and discharge orders placed on hold. PRISCILLA REYES MD Nov 01, 2022 16:18
--- NOTE | 2022-11-01 18:42 | PRM.PN ---
PROGRESS NOTE SUBJECTIVE Patient jamar some diet, but RUQ pain OBJECTIVE Vs per EMR ABD - TTP RUQ ASSESSMENT S/P lap shayna with cholangiogram HX of pancreatitis PLAN Diet as jamar, recheck labs in the am. MARY ALEX DO Nov 01, 2022 18:42
--- NOTE | 2022-11-01 19:30 | NUR ---
Patient up and ambulating in hallway at this time.
[2022-11-01 19:47] VITALS: BP 184/55
[2022-11-01] MEDS: LIPITOR PO SCH (20:35)
[2022-11-01] MEDS: ULTRAM PO PRN (20:36)
[2022-11-02] MEDS: OFIRMEV IV SCH ×2 (00:09→08:08)
[2022-11-02] MEDS: LOVENOX SQ SCH (00:25)
[2022-11-02] MEDS: ZOSYN 3.375 GM 3.375 GM in NS 100ML 100 ML IV SCH ×2 (02:24→07:31)
[2022-11-02 04:22] VITALS: BP 90/39
[2022-11-02 04:24] VITALS: BP 153/71
[2022-11-02] MEDS: ACCU-CHEK MC SCH (06:10)
[2022-11-02 07:00] LABS: BASOPHIL % 0.4 % (0.0-0.2); EOSINOPHIL # 0.2 10^3/uL (0.0-0.2); EOSINOPHIL % 3.2 % (0.0-5.0); LYMPHOCYTES # 1.38 10^3/uL1 (1.0-4.8); LYMPHOCYTES % 26.3 % (24.0-44.0); MEAN CORP HGB 30.3 pg (26-34); MONOCYTES # 0.5 10^3/uL (0.3-0.8); MONOCYTES % 9.5 % (5.0-12.0); NEUTROPHIL # 3.2 10^3/uL (1.8-7.7); NEUTROPHILS % 60.2 % (41.0-85.0); PLATELET COUNT 226 10^3/uL (150-400); RED CELL DISTRIBUTION WIDTH 13.1 % (11.5-14.5)
--- NOTE | 2022-11-02 07:00 | NUR ---
AMBULATION PATIENT AMBULATING INDEPENDENTLY IN HALLWAY AT THIS TIME NO S/S OF DISTRESS NOTED AT THIS TIME
[2022-11-02 07:25] VITALS: BP 143/72
[2022-11-02 07:59] LABS: CARBON DIOXIDE 24.2 mmol/L (20.0-32)
[2022-11-02] MEDS: SINGULAIR PO SCH (08:08)
[2022-11-02] MEDS: NEURONTIN PO SCH (08:08)
[2022-11-02] MEDS: BETAPACE PO SCH (08:08)
[2022-11-02] MEDS: ZESTRIL PO SCH (08:09)
[2022-11-02] MEDS: DULCOLAX PO SCH (08:09)
[2022-11-02] MEDS: TRICOR PO SCH (08:09)
[2022-11-02] MEDS: LANOXIN PO SCH (08:09)
[2022-11-02] MEDS: CARDIZEM PO SCH (08:09)
[2022-11-02] MEDS: PROTONIX IV IV SCH (08:10)
--- NOTE | 2022-11-02 10:51 | PRM.PN ---
PROGRESS NOTE SUBJECTIVE Patient is jamar diet and states she feels better. OBJECTIVE VS per EMR Labs- Increased LFTs noted abd- Bs +, soft , mild TTP in the upper abd ASSESSMENT 1) S/P Lap shayna with cholangiogram for cholelithiasis, probable choledocholithiasis and history of pancreatitis 2) elevated LFTs postop worrisome for retained stone 3) history of A-fib PLAN Patient feels better, there is a delay in her laboratory changes consistent with a possible retained common duct stone that is likely passed based on her clinical presentation. Repeat labs, increase diet and activity as tolerated. Resume home meds. Follow-up with me as an outpatient. MARY ALEX DO Nov 02, 2022 10:51
[2022-11-02 11:38] VITALS: BP 153/68
[2022-11-02] MEDS ORDERED: DUO 0.5-3(2.5) MG/3 ML IH ONE (14:25)
[2022-11-02] MEDS ORDERED: DUO 0.5-3(2.5) MG/3 ML IH STA (14:28)
[2022-11-02 16:02] VITALS: BP 153/68
== END 2022-11-02 15:00 | disposition home or self-care (01) | DRG 417 ==
LOC: ER 07:08 → LND 09:59 → UNDOADMIN 09:59 → MS 09:59 → EDPENDDISTM 11-02 15:00
PROVIDERS: ADMIT Internal Medicine; ATTEND Internal Medicine
PROC: BF121ZZ Fluoroscopy of Gallbladder using Low Osmolar Contrast (ICD-10-PCS; 2022-10-31)
PROC: 0FT44ZZ Resection of Gallbladder, Percutaneous Endoscopic Approach (ICD-10-PCS; principal; 2022-10-31 14:00)
DX: K80.12 Calculus of gallbladder with acute and chronic cholecystitis without obstruction (principal); K85.90 Acute pancreatitis without necrosis or infection, unspecified; N39.0 Urinary tract infection, site not specified; E78.5 Hyperlipidemia, unspecified; E11.9 Type 2 diabetes mellitus without complications; I10 Essential (primary) hypertension; I48.91 Unspecified atrial fibrillation; J45.909 Unspecified asthma, uncomplicated; K66.0 Peritoneal adhesions (postprocedural) (postinfection); K82.8 Other specified diseases of gallbladder; Z80.0 Family history of malignant neoplasm of digestive organs; Z82.3 Family history of stroke; Z82.49 Family history of ischemic heart disease and other diseases of the circulatory system; Z87.442 Personal history of urinary calculi; Z87.891 Personal history of nicotine dependence; Z79.899 Other long term (current) drug therapy
CPT/HCPCS: 36415; 74176; 74300; 80048; 80053; 80076; 81001; 82948; 83690; 85025; 85610; 85730; 86900; 87040; 87086; 87186; 94640; 99285; A4217; C9113; G0378; J0131; J0694; J1100; J1170; J1650; J1885; J2001; J2175; J2405; J2543; J2765; J3010; J3490; J7030; J7120; J7613; Q9965; C9290; J1580

== ENCOUNTER 2023-12-30 14:45 | Observation (INO) | payer MEDICARE ==
[~2023-12-30] VITALS: Ht 167.6 cm; Wt 81.6 kg
[2023-12-30] VITALS (13 sets, daily range): BP systolic 127–161; BP diastolic 54–86; PULSE 51–70; RESP 17–20; TEMP 97.1–98.7; O2SAT 92–99
[~2023-12-30 14:45] MED LIST changes: +DIGO125T3 PO; +DOXY25TA49 PO; +FLUT1AER IH; +GABA600T7 PO; +LISI5TAB18 PO; +METH-621 PO; +MONT-45 PO; -MONT10TA6 PO; +PROM25TA10 PO; +TRAM50TA PO; +[UNRECOGNIZED DRUG - CODE] PO
[2023-12-30] MEDS ORDERED: DUONEB 0.5-3(2.5) MG/3 ML IH ONE (14:57)
[2023-12-30 15:15] LABS: BASOPHIL % 0.4 % (0.0-0.2); EOSINOPHIL # 0.2 10^3/uL (0.0-0.2); EOSINOPHIL % 2.7 % (0.0-5.0); HEMATOCRIT(ML) 37.1 % (36.0-46.0); LYMPHOCYTES # 2.11 10^3/uL1 (1.0-4.8); LYMPHOCYTES % 28.1 % (24.0-44.0); MEAN CORP HGB 29.8 pg (26-34); MEAN CORP HGB CONCENTRATION 32.9 g/dL (33-36.5); MEAN CORP VOLUME 90.7 fL (78-100); MONOCYTES # 0.6 10^3/uL (0.3-0.8); MONOCYTES % 8.1 % (5.0-12.0); NEUTROPHIL # 4.5 10^3/uL (1.8-7.7); NEUTROPHILS % 60.4 % (41.0-85.0); PLATELET COUNT 345 10^3/uL (150-400); RED BLOOD CELL 4.09 10^6/uL (4.00-5.20); RED CELL DISTRIBUTION WIDTH 12.7 % (11.5-14.5); WHITE BLOOD CELL 7.5 10^3/uL (4.5-11.0)
[2023-12-30 15:16] LABS: HEMOGLOBIN 12.2 g/dL (12.0-15.0)
[2023-12-30 15:17] LABS: +ADD MANUAL DIFF(NO CHRG) NO
[2023-12-30] MEDS: DUONEB 0.5-3(2.5) MG/3 ML IH STA (15:24)
[2023-12-30 15:30] LABS: INR 1.3
[2023-12-30 15:38] LABS: ALBUMIN(ML) 3.3 g/dL (3.4-5.0); ALBUMIN/GLOBULIN RATIO 0.846; BUN/CREATININE RATIO 32.74 (10.0-20.0); CALCIUM 8.7 mg/dL (8.4-10.5); CARBON DIOXIDE 22.4 mmol/L (20.0-32); CREATININE SERUM 1.13 mg/dL (0.59-1.40); EST GFR, NON-AA 47.7 (>/=60); POTASSIUM 4.4 mmol/L (3.6-5.2)
[2023-12-30] MEDS ORDERED: ZOSYN 3.375 GM 3.375 GM in NS 100ML 100 ML IV STA (15:41)
[2023-12-30] MEDS ORDERED: IPRA3AMP25 IH (16:19)
[2023-12-30] MEDS ORDERED: [UNRECOGNIZED DRUG - CODE] PO (16:19)
[2023-12-30] MEDS ORDERED: [UNRECOGNIZED DRUG - CODE] PO (16:19)
[2023-12-30] MEDS ORDERED: NIRM1TAB9 PO (16:19)
[2023-12-30] MEDS ORDERED: ZOFRAN IV PRN (17:00)
[2023-12-30] MEDS ORDERED: TYLENOL PO PRN (17:00)
[2023-12-30] MEDS ORDERED: DUONEB 0.5-3(2.5) MG/3 ML IH PRN (17:00)
[2023-12-30] MEDS ORDERED: LIPITOR ONE (20:11)
[2023-12-30] MEDS: SOLU-MEDROL IV SCH (21:09)
[2023-12-30] MEDS: BETAPACE PO SCH (21:09)
[2023-12-30] MEDS: LIPITOR PO SCH (21:09)
[2023-12-30] MEDS: GLUCOPHAGE PO SCH (21:09)
[2023-12-30] MEDS ORDERED: TESSALON PERLE PO PRN (22:00)
[2023-12-30] MEDS: DUONEB 0.5-3(2.5) MG/3 ML IH SCH (22:40)
[2023-12-31] VITALS (14 sets, daily range): BP systolic 149–156; BP diastolic 66–86; PULSE 63–74; RESP 17–21; TEMP 96.8–97.4; O2SAT 92–98
[2023-12-31] MEDS: MELATONIN PO PRN (00:21)
[2023-12-31] MEDS: PEPCID PO SCH (07:33)
[2023-12-31 08:05] LABS: BASOPHIL % 0.2 % (0.0-0.2); LYMPHOCYTES # 1.32 10^3/uL1 (1.0-4.8); LYMPHOCYTES % 25.1 % (24.0-44.0); MEAN CORP HGB 29.5 pg (26-34); MEAN CORP HGB CONCENTRATION 32.5 g/dL (33-36.5); MEAN CORP VOLUME 90.7 fL (78-100); MONOCYTES # 0.1 10^3/uL (0.3-0.8); MONOCYTES % 1.5 % (5.0-12.0); NEUTROPHIL # 3.8 10^3/uL (1.8-7.7); NEUTROPHILS % 72.6 % (41.0-85.0); PLATELET COUNT 328 10^3/uL (150-400); RED BLOOD CELL 3.97 10^6/uL (4.00-5.20); RED CELL DISTRIBUTION WIDTH 12.9 % (11.5-14.5); WHITE BLOOD CELL 5.3 10^3/uL (4.5-11.0)
[2023-12-31 08:07] LABS: HEMOGLOBIN 11.7 g/dL (12.0-15.0)
[2023-12-31 08:08] LABS: ANION GAP 16.2; BUN/CREATININE RATIO 33.98 (10.0-20.0); CALCIUM 8.8 mg/dL (8.4-10.5); CARBON DIOXIDE 21.4 mmol/L (20.0-32); CREATININE SERUM 1.03 mg/dL (0.59-1.40); EST GFR, NON-AA 53.1 (>/=60); POTASSIUM 4.6 mmol/L (3.6-5.2)
[2023-12-31 08:09] LABS: +ADD MANUAL DIFF(NO CHRG) NO
[2023-12-31] MEDS ORDERED: DEXTROSE 50%-WATER SYRINGE IV PRN (09:30)
[2023-12-31] MEDS: PROTONIX PO SCH (10:10)
[2023-12-31] MEDS: LANOXIN PO SCH (10:10)
[2023-12-31] MEDS: LOVENOX SQ SCH (10:10)
[2023-12-31] MEDS: ZESTRIL PO SCH (10:10)
[2023-12-31] MEDS: SINGULAIR PO SCH (10:11)
[2023-12-31] MEDS: XARELTO PO SCH (10:11)
[2023-12-31] MEDS: DILTIAZEM PO SCH (10:16)
[2023-12-31] MEDS: VIBRAMYCIN PO SCH (10:17)
[2023-12-31] MEDS: HUMALOG SQ SCH (12:05)
[2023-12-31] MEDS ORDERED: WATER 20 ML ONE (14:32)
[2023-12-31] MEDS: RESTORIL PO PRN (21:55)
[2024-01-01] VITALS (8 sets, daily range): BP systolic 143–154; BP diastolic 57–62; PULSE 60–76; RESP 18–22; TEMP 97.6–98.9; O2SAT 94–98
[2024-01-01 08:28] LABS: BASOPHIL % 0.1 % (0.0-0.2); LYMPHOCYTES # 1.86 10^3/uL1 (1.0-4.8); LYMPHOCYTES % 16.4 % (24.0-44.0); MEAN CORP HGB 29.5 pg (26-34); MEAN CORP HGB CONCENTRATION 32.4 g/dL (33-36.5); MEAN CORP VOLUME 90.9 fL (78-100); MONOCYTES # 0.3 10^3/uL (0.3-0.8); MONOCYTES % 2.3 % (5.0-12.0); NEUTROPHIL # 9.1 10^3/uL (1.8-7.7); NEUTROPHILS % 80.7 % (41.0-85.0); PLATELET COUNT 452 10^3/uL (150-400); RED BLOOD CELL 4.07 10^6/uL (4.00-5.20); RED CELL DISTRIBUTION WIDTH 12.8 % (11.5-14.5); WHITE BLOOD CELL 11.3 10^3/uL (4.5-11.0)
[2024-01-01 08:29] LABS: +ADD MANUAL DIFF(NO CHRG) NO
[2024-01-01 08:42] LABS: ANION GAP 16.5; BUN/CREATININE RATIO 33.58 (10.0-20.0); CALCIUM 9.2 mg/dL (8.4-10.5); CARBON DIOXIDE 20.8 mmol/L (20.0-32); CREATININE SERUM 1.31 mg/dL (0.59-1.40); EST GFR, NON-AA 40.3 (>/=60); POTASSIUM 4.3 mmol/L (3.6-5.2)
[2024-01-01] MEDS: LOFIBRA PO SCH (09:07)
[2024-01-01] MEDS ORDERED: PRED20TA PO (10:04)
[2024-01-01] MEDS ORDERED: Benzonatate PO (10:04)
== END 2024-01-01 12:07 | disposition home or self-care (01) ==
LOC: ER 14:45 → EDBD 14:45 → OBS 16:07
PROVIDERS: ADMIT Internal Medicine; ATTEND Internal Medicine
DX: J45.901 Unspecified asthma with (acute) exacerbation (principal); U07.1 COVID-19; E11.9 Type 2 diabetes mellitus without complications; I10 Essential (primary) hypertension; E78.5 Hyperlipidemia, unspecified; I48.91 Unspecified atrial fibrillation; F41.9 Anxiety disorder, unspecified; Z88.6 Allergy status to analgesic agent; Z88.5 Allergy status to narcotic agent; Z79.899 Other long term (current) drug therapy; Z79.84 Long term (current) use of oral hypoglycemic drugs; Z90.49 Acquired absence of other specified parts of digestive tract; Z90.710 Acquired absence of both cervix and uterus; Z91.018 Allergy to other foods; Z86.79 Personal history of other diseases of the circulatory system
CPT/HCPCS: 96374; 99285; 71045; 80053; 85025 ×3; 82948 ×3; 36415 ×3; 84484; 83880; 85610; 85730; 93005; 94640 ×3; 96376 ×2; 80048 ×2; G0378 ×4; J2543; J2930 ×3; J1815 ×2; J1650; A4216; J3490

== ENCOUNTER → 2024-01-11 | Outpatient (CLI) | payer MEDICARE ==
[~2024-01-11] MED LIST changes: +Benzonatate PO; +IPRA3AMP25 IH; +NIRM1TAB9 PO; +PRED20TA PO; +[UNRECOGNIZED DRUG - CODE] PO; +[UNRECOGNIZED DRUG - CODE] PO
== END | disposition home or self-care (01) ==
LOC: RAD 12:42
PROVIDERS: ATTEND Nurse Practitioner Family
DX: U07.1 COVID-19 (principal); I70.0 Atherosclerosis of aorta; M47.814 Spondylosis without myelopathy or radiculopathy, thoracic region
CPT/HCPCS: 71046

== ENCOUNTER 2024-01-21 13:10 | Emergency (ER) | payer MEDICARE ==
[2024-01-26] MEDS ORDERED: ONDA4TAB13 PO (17:54)
[2024-01-26] MEDS ORDERED: HYDR20VI16 IV (17:54)
[2024-01-26] MEDS ORDERED: PROM25SU3 RC (17:54)
[2024-01-26] MEDS ORDERED: HYDR-3101 PO (17:54)
[2024-01-26] MEDS ORDERED: ACET325T24 PO (17:54)
== END 2024-01-21 15:07 | disposition still patient (30) ==
LOC: ER 13:10
DX: M25.559 Pain in unspecified hip (principal)
CPT/HCPCS: 99285; 73521; 85025; 36415; 80048; 85610; 85730; J0131; J3010

== ENCOUNTER 2024-01-26 20:25 | Inpatient (IN) | payer MEDICARE ==
[~2024-01-26] VITALS: Ht 167.6 cm; Wt 80.7 kg
[~2024-01-26 20:25] MED LIST changes: +ACET325T24 PO; +HYDR-3101 PO; +HYDR20VI16 IV; +ONDA4TAB13 PO; +PROM25SU3 RC
[2024-01-26] MEDS ORDERED: DUONEB 0.5-3(2.5) MG/3 ML IH PRN (22:00)
[2024-01-26] MEDS ORDERED: TESSALON PERLE PO PRN (22:00)
[2024-01-26] MEDS ORDERED: APRESOLINE PO PRN (22:00)
[2024-01-26] MEDS ORDERED: PROMETHEGAN RC PRN (22:00)
[2024-01-26 22:54] VITALS: PULSE 57
[2024-01-26] MEDS: BETAPACE PO SCH (23:14)
[2024-01-27] MEDS: NORCO 7.5 PO PRN (01:34)
[2024-01-27] MEDS: ZOFRAN ODT SL PRN (01:34)
[2024-01-27 08:09] VITALS: BP 151/60; PULSE 58; RESP 18; TEMP 97.3; O2SAT 95
[2024-01-27] MEDS: GLUCOPHAGE PO SCH (08:27)
[2024-01-27] MEDS: DILTIAZEM PO SCH (08:27)
[2024-01-27] MEDS: ZESTRIL PO SCH (08:28)
[2024-01-27] MEDS: LOFIBRA PO SCH (08:28)
[2024-01-27] MEDS: XARELTO PO SCH (08:28)
[2024-01-27] MEDS: LANOXIN PO SCH (08:30)
[2024-01-27 11:53] VITALS: BP 136/62; PULSE 60; RESP 18; TEMP 97.8; O2SAT 96
[2024-01-27 12:39] VITALS: BP 136/62; PULSE 60; RESP 18; TEMP 97.8; O2SAT 96
[2024-01-27 19:15] VITALS: PULSE 57; RESP 17; TEMP 97.9; O2SAT 95
[2024-01-27] MEDS: SINGULAIR PO SCH (20:33)
[2024-01-27] MEDS: LIPITOR PO SCH (20:33)
[2024-01-28 08:14] LABS: BASOPHIL % 0.4 % (0.0-0.2); EOSINOPHIL # 0.2 10^3/uL (0.0-0.2); EOSINOPHIL % 3.4 % (0.0-5.0); HEMATOCRIT(ML) 34.6 % (36.0-46.0); HEMOGLOBIN 10.9 g/dL (12.0-15.0); LYMPHOCYTES # 2.23 10^3/uL1 (1.0-4.8); LYMPHOCYTES % 32.6 % (24.0-44.0); MEAN CORP HGB 29.6 pg (26-34); MEAN CORP HGB CONCENTRATION 31.5 g/dL (33-36.5); MONOCYTES # 0.6 10^3/uL (0.3-0.8); MONOCYTES % 8.2 % (5.0-12.0); NEUTROPHIL # 3.7 10^3/uL (1.8-7.7); NEUTROPHILS % 54.2 % (41.0-85.0); PLATELET COUNT 283 10^3/uL (150-400); RED BLOOD CELL 3.68 10^6/uL (4.00-5.20); RED CELL DISTRIBUTION WIDTH 14.1 % (11.5-14.5); WHITE BLOOD CELL 6.8 10^3/uL (4.5-11.0)
[2024-01-28 08:20] LABS: +ADD MANUAL DIFF(NO CHRG) NO; ANION GAP 10.2; BUN/CREATININE RATIO 22.07 (10.0-20.0); CALCIUM 8.9 mg/dL (8.4-10.5); CARBON DIOXIDE 29.1 mmol/L (20.0-32); CREATININE SERUM 0.77 mg/dL (0.59-1.40); EST GFR, NON-AA 74.1 (>/=60); POTASSIUM 4.3 mmol/L (3.6-5.2)
[2024-01-28 08:42] VITALS: BP 152/60; PULSE 62; RESP 18; TEMP 98; O2SAT 95
[2024-01-28] MEDS: TYLENOL PO PRN (15:05)
[2024-01-28 20:47] VITALS: BP 133/46; PULSE 59; RESP 20; TEMP 97.3; O2SAT 93
[2024-01-29 07:53] VITALS: BP 138/43; PULSE 54; RESP 18; TEMP 96; O2SAT 96
[2024-01-29] MEDS: TRICOR PO SCH (09:40)
[2024-01-29 20:00] VITALS: BP 143/53; PULSE 61; RESP 17; TEMP 97.9; O2SAT 97
[2024-01-30 08:05] VITALS: BP 143/53; PULSE 56; RESP 20; TEMP 96.7; O2SAT 96
[2024-01-30 09:44] VITALS: PULSE 60; RESP 18; O2SAT 96
[2024-01-30 20:27] VITALS: BP 131/44; PULSE 59; RESP 18; TEMP 98.3; O2SAT 96
[2024-01-31 07:57] VITALS: BP 147/66; PULSE 57; RESP 17; TEMP 97.9; O2SAT 95
[2024-01-31 08:56] VITALS: RESP 17; O2SAT 95
[2024-01-31 08:58] VITALS: PULSE 57; PULSE 63; RESP 17; RESP 18; O2SAT 95
[2024-01-31 19:10] VITALS: BP 144/52; PULSE 67; RESP 18; TEMP 97.1; O2SAT 98
[2024-02-01 07:39] VITALS: BP 154/62; PULSE 63; RESP 18; TEMP 97.1; O2SAT 94
[2024-02-01 19:58] VITALS: BP 138/45; PULSE 64; RESP 18; TEMP 97.8; O2SAT 94
[2024-02-02 08:14] VITALS: BP 151/68; PULSE 57; RESP 18; TEMP 97.7; O2SAT 95
[2024-02-02 13:19] VITALS: RESP 18; O2SAT 95
[2024-02-02] MEDS: ULTRAM PO PRN (14:27)
[2024-02-02 19:51] VITALS: BP 135/60; PULSE 65; RESP 18; TEMP 97.8; O2SAT 91
[2024-02-03 08:02] VITALS: BP 136/55; PULSE 58; RESP 18; TEMP 97; O2SAT 94
[2024-02-03 19:40] VITALS: BP 117/39; PULSE 59; RESP 17; TEMP 97.9; O2SAT 96
[2024-02-04 08:30] VITALS: BP 153/55; PULSE 67; RESP 18; TEMP 98; O2SAT 95
[2024-02-04 22:00] VITALS: BP 167/51; PULSE 62; RESP 16; TEMP 96.6; O2SAT 95
[2024-02-05 08:28] VITALS: BP 152/63; PULSE 63; RESP 18; TEMP 97.7; O2SAT 97
[2024-02-05 15:54] VITALS: RESP 21; O2SAT 97
[2024-02-05 20:00] VITALS: BP 122/48; PULSE 62; RESP 18; TEMP 97.5; O2SAT 96
[2024-02-06 08:20] VITALS: BP 133/54; PULSE 60; RESP 18; TEMP 97.9; O2SAT 97
[2024-02-06 20:46] VITALS: BP 164/52; PULSE 68; RESP 16; TEMP 97.1; O2SAT 98
[2024-02-07 08:13] VITALS: BP 123/69; PULSE 69; RESP 18; TEMP 98; O2SAT 96
[2024-02-07 08:37] VITALS: PULSE 72; RESP 18; O2SAT 96
[2024-02-07 19:58] VITALS: BP 148/52; PULSE 60; RESP 17; TEMP 97.8; O2SAT 98
[2024-02-08 08:24] VITALS: BP 142/61; PULSE 56; RESP 18; TEMP 97.5; O2SAT 90
[2024-02-08 19:37] VITALS: BP 129/55; PULSE 60; RESP 17; TEMP 97.2; O2SAT 95
[2024-02-09 08:43] VITALS: BP 136/54; PULSE 62; RESP 18; TEMP 96.9; O2SAT 93
[2024-02-09 18:22] VITALS: BP 121/57; PULSE 61; RESP 17; TEMP 97.8; O2SAT 96
[2024-02-10 07:04] VITALS: BP 144/48; PULSE 57; RESP 18; TEMP 97.5; O2SAT 95
[2024-02-10 21:40] VITALS: BP 139/55; PULSE 63; RESP 16; TEMP 98; O2SAT 92
[2024-02-11 08:10] VITALS: BP 128/47; PULSE 60; RESP 18; TEMP 96; O2SAT 96
[2024-02-11] MEDS ORDERED: TRAM50TA PO (08:33)
== END 2024-02-11 13:20 | disposition home health service (06) | DRG 538 ==
LOC: SBU 20:25
PROVIDERS: ADMIT Internal Medicine; ATTEND Internal Medicine
DX: S76.312A Strain of muscle, fascia and tendon of the posterior muscle group at thigh level, left thigh, initial encounter (principal); I10 Essential (primary) hypertension; E78.5 Hyperlipidemia, unspecified; E11.9 Type 2 diabetes mellitus without complications; I48.91 Unspecified atrial fibrillation; J45.909 Unspecified asthma, uncomplicated; Z80.0 Family history of malignant neoplasm of digestive organs; Z80.8 Family history of malignant neoplasm of other organs or systems; Z86.79 Personal history of other diseases of the circulatory system; Z88.6 Allergy status to analgesic agent; Z79.899 Other long term (current) drug therapy; W18.39XA Other fall on same level, initial encounter; Y93.89 Activity, other specified; Y92.89 Other specified places as the place of occurrence of the external cause; Y99.8 Other external cause status
CPT/HCPCS: 36415; 80048; 85025; 97161; 97166; 97530; J3490; J8499; 97110-GO; 97110-GP; 97112-GO; 97116-GP; 97535-GO

== ENCOUNTER 2024-02-18 12:51 | Emergency (ER) | payer MEDICARE ==
[~2024-02-18] VITALS: Ht 170.2 cm; Wt 80.7 kg
[2024-02-18 13:10] VITALS: BP 140/53; PULSE 64; RESP 18; TEMP 98.4; O2SAT 93
[2024-02-18 13:55] VITALS: BP 126/51; PULSE 60; RESP 18; O2SAT 95
[2024-02-18 14:21] VITALS: BP 125/53; PULSE 65; RESP 18; O2SAT 97
[2024-02-18] MEDS ORDERED: AMOX1TAB12 PO (14:44)
[2024-02-18 14:45] VITALS: BP 128/55; PULSE 62; RESP 18; O2SAT 96
== END 2024-02-18 14:49 | disposition home or self-care (01) ==
LOC: ER 12:51
DX: S00.83XA Contusion of other part of head, initial encounter (principal); S40.011A Contusion of right shoulder, initial encounter; S70.01XA Contusion of right hip, initial encounter; J32.9 Chronic sinusitis, unspecified; E11.9 Type 2 diabetes mellitus without complications; I10 Essential (primary) hypertension; J45.909 Unspecified asthma, uncomplicated; Z88.5 Allergy status to narcotic agent; Z88.6 Allergy status to analgesic agent; Z79.899 Other long term (current) drug therapy; Z90.49 Acquired absence of other specified parts of digestive tract; Z90.710 Acquired absence of both cervix and uterus; W19.XXXA Unspecified fall, initial encounter; Y93.89 Activity, other specified; Y92.098 Other place in other non-institutional residence as the place of occurrence of the external cause; Y99.8 Other external cause status
CPT/HCPCS: 70450; 70486; 72170; 99284; 73020-RT

== ENCOUNTER → 2024-05-04 | Outpatient (CLI) | payer MEDICARE ==
[~2024-05-04] MED LIST changes: +AMOX1TAB12 PO; +ONDA-226 PO; -ONDA4TAB13 PO
== END | disposition home or self-care (01) ==
LOC: NPLAB 14:32
PROVIDERS: ATTEND Orthopaedic Surgery
DX: M25.552 Pain in left hip (principal)
CPT/HCPCS: 73502

== ENCOUNTER 2024-06-13 08:25 | Observation (INO) | payer MEDICARE ==
[~2024-06-13 08:25] MED LIST changes: +ATOR80TA PO; +GABA-1222 PO; +GABA600T PO; -GABA600T7 PO; +RIVA20TA PO
== END 2024-06-15 10:10 | disposition home or self-care (01) ==
LOC: SDC 08:25 → OBS 15:44
PROVIDERS: ADMIT Orthopaedic Surgery; ATTEND Orthopaedic Surgery
DX: M16.12 Unilateral primary osteoarthritis, left hip (principal); G89.18 Other acute postprocedural pain; G44.209 Tension-type headache, unspecified, not intractable; I10 Essential (primary) hypertension; J45.909 Unspecified asthma, uncomplicated; E11.9 Type 2 diabetes mellitus without complications; Z86.2 Personal history of diseases of the blood and blood-forming organs and certain disorders involving the immune mechanism; Z79.899 Other long term (current) drug therapy
CPT/HCPCS: 87086; 80053 ×3; 85025 ×3; 87070; 36415 ×3; 81001; 85610; 85730; 80162; 64447; 27130; 73502; 82948 ×2; 93005 ×2; 96365; 96366 ×2; 96375; 97116; 97162; 84484; 93306; G0378 ×4; C9290; J7050; J7120; A4217 ×2; A4649 ×2; J0690 ×3; J1100; J1170; J0131; J8499 ×4; J2405 ×2; J2250; J3010; J3490 ×2; A9150 ×3; C1776 ×4; C1713; J1885; 76000; 85027

== ENCOUNTER 2024-06-13 08:25 | Inpatient (IN) | payer MEDICARE ==
[2024-06-10 13:16] VITALS: BP 156/69; PULSE 67; RESP 16; TEMP 97.4; O2SAT 95
[2024-06-10 14:23] LABS: BASOPHIL % 0.3 % (0.1-1.2); EOSINOPHIL # 0.2 10^3/uL (0.0-0.2); EOSINOPHIL % 2.4 % (0.0-5.0); HEMATOCRIT(ML) 36.2 % (36.0-46.0); HEMOGLOBIN 11.3 g/dL (12.0-15.0); LYMPHOCYTES # 1.83 10^3/uL1 (1.0-4.8); LYMPHOCYTES % 20.8 % (24.0-44.0); MEAN CORP HGB 29.7 pg (26-34); MEAN CORP HGB CONCENTRATION 31.2 g/dL (33-36.5); MEAN CORP VOLUME 95.3 fL (78-100); MONOCYTES # 0.4 10^3/uL (0.3-0.8); MONOCYTES % 4.9 % (5.0-12.0); NEUTROPHIL # 6.3 10^3/uL (1.8-7.7); PLATELET COUNT 333 10^3/uL (150-400); RED CELL DISTRIBUTION WIDTH 12.8 % (11.5-14.5); WHITE BLOOD CELL 8.8 10^3/uL (4.5-11.0)
[2024-06-10 14:24] LABS: +ADD MANUAL DIFF(NO CHRG) NO; BILIRUBIN,URINE NEGATIVE (NEGATIVE); LEUKOCYTE ESTERASE ,URINE TRACE (NEGATIVE); NITRATE,URINE NEGATIVE (NEGATIVE); PH,URINE 5.5 (4.5-8.0); UROBILINOGEN,URINE 0.2 E.U./dL (0.2)
[2024-06-10 14:30] LABS: APPEARANCE,URINE CLEAR; UA COLOR YELLOW
[2024-06-10 14:35] LABS: INR 1.1; PROTHROMBIN PROTIME 11.9 SEC (9.7-11.6)
[2024-06-10 14:44] LABS: ALBUMIN(ML) 3.6 g/dL (3.4-5.0); ALBUMIN/GLOBULIN RATIO 1.125; ANION GAP 15.7; BUN/CREATININE RATIO 18.94 (10.0-20.0); CALCIUM 8.9 mg/dL (8.4-10.5); CARBON DIOXIDE 23.3 mmol/L (20.0-32); CREATININE SERUM 0.95 mg/dL (0.59-1.40); EST GFR, NON-AA 58.2 (>/=60)
[2024-06-13] VITALS (26 sets, daily range): BP systolic 106–159; BP diastolic 35–79; PULSE 45–64; RESP 16–18; TEMP 97–97.8; O2SAT 94–99
[~2024-06-13] VITALS: Ht 170.2 cm; Wt 86.2 kg
[~2024-06-13 08:25] MED LIST changes: +ANCEF ONE; +NS 100ML 100 ML IV ONE; +NS 250ML 250 ML ONE; +NS 3000ML IRR IR ONE; +SODIUM CHLORIDE IRR BOTTLE IR ONE; +WATER ONE
[2024-06-13] MEDS: LACTATED RINGERS 1,000 ML IV ONE (09:15)
[2024-06-13] MEDS: BACTROBAN OINTMENT TP ONE (09:20)
[2024-06-13] MEDS: NEURONTIN PO ONE (09:20)
[2024-06-13] MEDS: ULTRAM PO ONE (09:20)
[2024-06-13] MEDS: DECADRON IV ONE (09:20)
[2024-06-13] MEDS: CELEBREX PO ONE (09:20)
[2024-06-13] MEDS ORDERED: SENSORCAINE-MPF 0.25% VIAL ONE (10:00)
[2024-06-13] MEDS: OFIRMEV 1000 MG/100 ML 100 ML IV ONE (10:00)
[2024-06-13] MEDS ORDERED: VERSED ONE ×2 (10:00→12:25)
[2024-06-13] MEDS: ANCEF 2 GM/D5W 50ML 50 ML IV ONE (10:10)
[2024-06-13] MEDS ORDERED: EXPAREL 266 MG/20 ML VIAL IJ ONE (10:55)
[2024-06-13] MEDS ORDERED: TRANEXAMIC 1,000 MG/100ML-NACL 200 ML IV ONE (11:11)
[2024-06-13] MEDS ORDERED: DIPRIVAN 100 ML IV ONE (11:11)
[2024-06-13] MEDS ORDERED: ZOFRAN ONE (11:11)
[2024-06-13] MEDS ORDERED: DILAUDID ONE (13:48)
[2024-06-13] MEDS: DILAUDID IV ONE ×4 (13:50→14:18)
[2024-06-13] MEDS ORDERED: SUBLIMAZE 100MCG/2ML ONE (14:27)
[2024-06-13] MEDS: SUBLIMAZE 100MCG/2ML IV ONE ×4 (14:33→14:57)
[2024-06-13] MEDS: ZOFRAN IV PRN (20:29)
[2024-06-13] MEDS: TYLENOL PO SCH (23:21)
[2024-06-14] VITALS (9 sets, daily range): BP systolic 117–149; BP diastolic 46–64; PULSE 58–69; RESP 16–20; TEMP 96.8–98.1; O2SAT 92–100
[2024-06-14 08:41] LABS: BASOPHIL % 0.1 % (0.1-1.2); EOSINOPHIL # 0.1 10^3/uL (0.0-0.2); EOSINOPHIL % 0.5 % (0.0-5.0); HEMOGLOBIN 9.7 g/dL (12.0-15.0); LYMPHOCYTES # 1.98 10^3/uL1 (1.0-4.8); LYMPHOCYTES % 20.1 % (24.0-44.0); MEAN CORP HGB 29.4 pg (26-34); MEAN CORP HGB CONCENTRATION 31.3 g/dL (33-36.5); MEAN CORP VOLUME 93.9 fL (78-100); MONOCYTES # 0.7 10^3/uL (0.3-0.8); MONOCYTES % 6.7 % (5.0-12.0); NEUTROPHIL # 7.1 10^3/uL (1.8-7.7); NEUTROPHILS % 72.2 % (41.0-85.0); PLATELET COUNT 271 10^3/uL (150-400); RED CELL DISTRIBUTION WIDTH 12.5 % (11.5-14.5); WHITE BLOOD CELL 9.9 10^3/uL (4.5-11.0)
[2024-06-14 08:44] LABS: +ADD MANUAL DIFF(NO CHRG) NO
[2024-06-14 09:03] LABS: ALBUMIN/GLOBULIN RATIO 1.111; ANION GAP 12.8; BUN/CREATININE RATIO 19.8 (10.0-20.0); CALCIUM 8.5 mg/dL (8.4-10.5); CARBON DIOXIDE 27.7 mmol/L (20.0-32); CREATININE SERUM 1.01 mg/dL (0.59-1.40); EST GFR, NON-AA 54.2 (>/=60); POTASSIUM 4.5 mmol/L (3.6-5.2)
[2024-06-14] MEDS: LIPITOR PO SCH (09:49)
[2024-06-14] MEDS: TRICOR PO SCH (09:49)
[2024-06-14] MEDS: LANOXIN PO SCH (09:49)
[2024-06-14] MEDS: GLUCOPHAGE PO SCH (09:50)
[2024-06-14] MEDS: NEURONTIN PO SCH (09:50)
[2024-06-14] MEDS: XARELTO PO SCH (09:50)
[2024-06-14] MEDS: SINGULAIR PO SCH (09:50)
[2024-06-14] MEDS: ANCEF 2 GM/D5W 50ML 50 ML IV SCH (13:56)
[2024-06-14] MEDS: ULTRAM PO PRN (13:57)
[2024-06-14] MEDS ORDERED: ANCEF 2 GM/D5W 50ML IV SCH (14:00)
[2024-06-14] MEDS: TORADOL IV PRN (16:54)
[2024-06-15] VITALS (8 sets, daily range): BP systolic 139–159; BP diastolic 56–63; PULSE 64–95; RESP 14–18; TEMP 97.1–98.1; O2SAT 93–98
[2024-06-15] MEDS: PLAVIX PO STA (07:45)
[2024-06-15] MEDS: NITROSTAT SL STA ×3 (07:45→14:08)
[2024-06-15 08:22] LABS: BASOPHIL % 0.2 % (0.1-1.2); EOSINOPHIL # 0.3 10^3/uL (0.0-0.2); EOSINOPHIL % 2.9 % (0.0-5.0); HEMATOCRIT(ML) 30.9 % (36.0-46.0); HEMOGLOBIN 9.7 g/dL (12.0-15.0); LYMPHOCYTES # 1.73 10^3/uL1 (1.0-4.8); LYMPHOCYTES % 19.5 % (24.0-44.0); MEAN CORP HGB 29.7 pg (26-34); MEAN CORP HGB CONCENTRATION 31.4 g/dL (33-36.5); MEAN CORP VOLUME 94.5 fL (78-100); MONOCYTES # 0.7 10^3/uL (0.3-0.8); MONOCYTES % 7.3 % (5.0-12.0); NEUTROPHIL # 6.2 10^3/uL (1.8-7.7); NEUTROPHILS % 69.6 % (41.0-85.0); PLATELET COUNT 269 10^3/uL (150-400); RED BLOOD CELL 3.27 10^6/uL (4.00-5.20); RED CELL DISTRIBUTION WIDTH 12.9 % (11.5-14.5); WHITE BLOOD CELL 8.9 10^3/uL (4.5-11.0)
[2024-06-15 08:26] LABS: +ADD MANUAL DIFF(NO CHRG) NO
[2024-06-15 08:36] LABS: ALBUMIN(ML) 2.7 g/dL (3.4-5.0); ALBUMIN/GLOBULIN RATIO 0.931; BUN/CREATININE RATIO 25.24 (10.0-20.0); CALCIUM 8.2 mg/dL (8.4-10.5); CARBON DIOXIDE 26.2 mmol/L (20.0-32); CREATININE SERUM 1.03 mg/dL (0.59-1.40); POTASSIUM 4.2 mmol/L (3.6-5.2)
[2024-06-15] MEDS: BREO ELLIPTA 100-25 MCG INH IH SCH (08:47)
[2024-06-15] MEDS: BETAPACE PO SCH (11:12)
[2024-06-15] MEDS: NON-FORMULARY MEDICATION 1 EA EA PO SCH (20:44)
[2024-06-16] VITALS (9 sets, daily range): BP systolic 125–147; BP diastolic 40–89; PULSE 63–75; RESP 16–18; TEMP 96.9–98.6; O2SAT 0–97
[2024-06-16] MEDS: LIPITOR PO SCH (09:18)
[2024-06-16] MEDS: ZESTRIL PO SCH (09:19)
[2024-06-17] VITALS (8 sets, daily range): BP systolic 101–134; BP diastolic 47–75; PULSE 65–80; RESP 16–21; TEMP 96.8–98.7; O2SAT 92–96
[2024-06-17 05:24] LABS: HEMATOCRIT(ML) 27.7 % (36.0-46.0); HEMOGLOBIN 8.8 g/dL (12.0-15.0); MEAN CORP HGB 29.9 pg (26-34); MEAN CORP HGB CONCENTRATION 31.8 g/dL (33-36.5); MEAN CORP VOLUME 94.2 fL (78-100); RED BLOOD CELL 2.94 10^6/uL (4.00-5.20); WHITE BLOOD CELL 8.9 10^3/uL (4.5-11.0)
[2024-06-17 05:33] LABS: ANION GAP 10.3; BUN/CREATININE RATIO 32.43 (10.0-20.0); CALCIUM 8.9 mg/dL (8.4-10.5); CARBON DIOXIDE 28.1 mmol/L (20.0-32); CREATININE SERUM 0.74 mg/dL (0.59-1.40); EST GFR, NON-AA 77.6 (>/=60); POTASSIUM 4.4 mmol/L (3.6-5.2)
[2024-06-17] MEDS ORDERED: XARELTO ONE (09:01)
[2024-06-17] MEDS: NITROSTAT SL PRN (10:20)
[2024-06-18] VITALS (7 sets, daily range): BP systolic 113–139; BP diastolic 48–67; PULSE 56–77; RESP 17–20; TEMP 96.7–98; O2SAT 91–96
[2024-06-18] MEDS: TORADOL IV PRN (15:26)
[2024-06-19] VITALS (7 sets, daily range): BP systolic 108–159; BP diastolic 47–63; PULSE 64–81; RESP 17–18; TEMP 97.3–98.5; O2SAT 92–98
[2024-06-19] MEDS ORDERED: XARELTO ONE (09:28)
[2024-06-19] MEDS: ULTRAM PO PRN (20:01)
[2024-06-20 03:04] VITALS: PULSE 70; RESP 17; TEMP 97.3; O2SAT 95
[2024-06-20 03:14] VITALS: BP 130/60; PULSE 69; RESP 18; O2SAT 97
[2024-06-20 03:57] LABS: CREATINE KINASE MB 1.1 ng/mL (0.5-3.6)
[2024-06-20 07:19] VITALS: BP 127/50; PULSE 64; RESP 18; TEMP 98.1; O2SAT 94
[2024-06-20] MEDS ORDERED: XARELTO ONE (08:59)
[2024-06-20] MEDS: XANAX PO STA (15:10)
[2024-06-20] MEDS: NITROSTAT SL STA (15:12)
[2024-06-20 16:10] VITALS: BP 128/50; PULSE 83; RESP 18; TEMP 97.4; O2SAT 92
[2024-06-20 19:00] VITALS: BP 152/47; PULSE 82; RESP 18; TEMP 98; O2SAT 94
[2024-06-21] VITALS (7 sets, daily range): BP systolic 126–146; BP diastolic 41–82; PULSE 67–79; RESP 17–18; TEMP 97–98.7; O2SAT 93–97
[2024-06-21] MEDS: NS 500ML 500 ML IV ONE (06:19)
[2024-06-21 06:20] LABS: BASOPHIL % 0.3 % (0.1-1.2); EOSINOPHIL # 0.6 10^3/uL (0.0-0.2); EOSINOPHIL % 6.4 % (0.0-5.0); HEMATOCRIT(ML) 25.7 % (36.0-46.0); LYMPHOCYTES # 2.73 10^3/uL1 (1.0-4.8); LYMPHOCYTES % 30.6 % (24.0-44.0); MEAN CORP HGB 30.1 pg (26-34); MEAN CORP HGB CONCENTRATION 31.1 g/dL (33-36.5); MEAN CORP VOLUME 96.6 fL (78-100); MONOCYTES # 0.8 10^3/uL (0.3-0.8); MONOCYTES % 8.4 % (5.0-12.0); NEUTROPHIL # 4.6 10^3/uL (1.8-7.7); NEUTROPHILS % 51.9 % (41.0-85.0); PLATELET COUNT 342 10^3/uL (150-400); RED BLOOD CELL 2.66 10^6/uL (4.00-5.20); RED CELL DISTRIBUTION WIDTH 14.5 % (11.5-14.5); WHITE BLOOD CELL 8.9 10^3/uL (4.5-11.0)
[2024-06-21 06:22] LABS: +ADD MANUAL DIFF(NO CHRG) NO
[2024-06-21] MEDS: NS 1000ML 1,000 ML IV SCH (06:44)
[2024-06-21 06:59] LABS: ALBUMIN(ML) 2.5 g/dL (3.4-5.0); ALBUMIN/GLOBULIN RATIO 0.862; ANION GAP 15.3; BUN/CREATININE RATIO 32.96 (10.0-20.0); CALCIUM 8.6 mg/dL (8.4-10.5); CARBON DIOXIDE 23.5 mmol/L (20.0-32); CREATININE SERUM 0.91 mg/dL (0.59-1.40); EST GFR, NON-AA 61.1 (>/=60); POTASSIUM 4.8 mmol/L (3.6-5.2)
[2024-06-21 07:08] LABS: INR 1.1; PROTHROMBIN PROTIME 11.4 SEC (9.7-11.6)
[2024-06-21] MEDS: NS 500ML IV ONE (08:00)
[2024-06-21] MEDS ORDERED: SUBLIMAZE 100MCG/2ML ONE ×2 (08:01→08:17)
[2024-06-21] MEDS ORDERED: HEPARIN ONE (08:02)
[2024-06-21] MEDS ORDERED: XYLOCAINE ONE ×2 (08:02→08:17)
[2024-06-21] MEDS ORDERED: VERSED ONE ×3 (08:02→09:55)
[2024-06-21] MEDS: APRESOLINE IV STA (11:18)
[2024-06-21] MEDS ORDERED: NITR0.4T SL (13:18)
== END 2024-06-21 16:00 | disposition home or self-care (01) | DRG 470 ==
LOC: SDC 08:25 → OBS 15:10 → OBSVTOIN 06-15 10:10 → MS 06-15 10:11
PROVIDERS: ADMIT Orthopaedic Surgery; ATTEND Orthopaedic Surgery
PROC: B2111ZZ Fluoroscopy of Multiple Coronary Arteries using Low Osmolar Contrast (ICD-10-PCS; 2024-06-13)
PROC: B2151ZZ Fluoroscopy of Left Heart using Low Osmolar Contrast (ICD-10-PCS; 2024-06-13)
PROC: B41F1ZZ Fluoroscopy of Right Lower Extremity Arteries using Low Osmolar Contrast (ICD-10-PCS; 2024-06-13)
PROC: 0SRB03A Replacement of Left Hip Joint with Ceramic Synthetic Substitute, Uncemented, Open Approach (ICD-10-PCS; 2024-06-13)
PROC: 4A023N7 Measurement of Cardiac Sampling and Pressure, Left Heart, Percutaneous Approach (ICD-10-PCS; principal; 2024-06-13 11:14)
DX: M16.12 Unilateral primary osteoarthritis, left hip (principal); I20.0 Unstable angina; D62 Acute posthemorrhagic anemia; E11.9 Type 2 diabetes mellitus without complications; E78.5 Hyperlipidemia, unspecified; I10 Essential (primary) hypertension; J32.9 Chronic sinusitis, unspecified; J45.909 Unspecified asthma, uncomplicated; I48.91 Unspecified atrial fibrillation; Z80.0 Family history of malignant neoplasm of digestive organs; Z82.49 Family history of ischemic heart disease and other diseases of the circulatory system; Z87.891 Personal history of nicotine dependence; Z88.6 Allergy status to analgesic agent; Z79.899 Other long term (current) drug therapy; Z88.8 Allergy status to other drugs, medicaments and biological substances
CPT/HCPCS: 36415; 73502; 76000; 80048; 80053; 80162; 81001; 82553; 82948; 83735; 84484; 85025; 85027; 85610; 85730; 87070; 87086; 93005; 93306; 93458; 97162; 99152; A4217; A4618; A6258; C1713; C1760; C1769; C1776; C1894; C9290; E0617; G0378; J0131; J0360; J0690; J1100; J1170; J1644; J1885; J2250; J2405; J3010; J3490; J7030; J7040; J7050; J7120; J8499; Q9967; 97110-GP; 97116-GP; 97530-GP

== ENCOUNTER → 2024-07-12 | Outpatient (CLI) | payer MEDICARE ==
[~2024-07-12] MED LIST changes: -ANCEF ONE; +NITR0.4T SL; -NS 100ML 100 ML IV ONE; -NS 250ML 250 ML ONE; -NS 3000ML IRR IR ONE; -SODIUM CHLORIDE IRR BOTTLE IR ONE; -WATER ONE
== END | disposition home or self-care (01) ==
LOC: RAD 15:33
PROVIDERS: ATTEND Orthopaedic Surgery
DX: M19.012 Primary osteoarthritis, left shoulder (principal); M47.819 Spondylosis without myelopathy or radiculopathy, site unspecified
CPT/HCPCS: 73030-LT

== ENCOUNTER → 2024-09-12 | Outpatient (CLI) | payer MEDICARE ==
[~2024-09-12] MED LIST changes: -ACET325T24 PO; -ATOR80TA PO; +[UNRECOGNIZED DRUG - CODE] PO; +[UNRECOGNIZED DRUG - CODE] PO
== END | disposition home or self-care (01) ==
LOC: RAD 13:02
PROVIDERS: ATTEND Orthopaedic Surgery
DX: M19.012 Primary osteoarthritis, left shoulder (principal); M75.82 Other shoulder lesions, left shoulder; M25.412 Effusion, left shoulder; M65.812 Other synovitis and tenosynovitis, left shoulder
CPT/HCPCS: 73221

== ENCOUNTER 2024-10-06 08:30 | Day surgery (SDC) | payer MEDICARE ==
[2024-10-04 14:32] VITALS: BP 142/52; PULSE 54; RESP 18; TEMP 97.2; O2SAT 94
[2024-10-04 14:47] LABS: BASOPHIL % 0.5 % (0.1-1.2); EOSINOPHIL # 0.4 10^3/uL (0.0-0.2); EOSINOPHIL % 4.8 % (0.0-5.0); HEMATOCRIT(ML) 35.6 % (36.0-46.0); HEMOGLOBIN 11.1 g/dL (12.0-15.0); IG % 0.7 % (0.00-0.50); LYMPHOCYTES # 2.15 10^3/uL1 (1.0-4.8); LYMPHOCYTES % 24.6 % (24.0-44.0); MEAN CORP HGB 28.5 pg (26-34); MEAN CORP HGB CONCENTRATION 31.2 g/dL (33-36.5); MEAN CORP VOLUME 91.3 fL (78-100); MONOCYTES # 0.6 10^3/uL (0.3-0.8); MONOCYTES % 6.6 % (5.0-12.0); NEUTROPHIL # 5.5 10^3/uL (1.8-7.7); NEUTROPHILS % 62.8 % (41.0-85.0); RED BLOOD CELL 3.9 10^6/uL (4.00-5.20); RED CELL DISTRIBUTION WIDTH 13.5 % (11.5-14.5); WHITE BLOOD CELL 8.7 10^3/uL (4.5-11.0)
[2024-10-04 15:01] LABS: INR 1.1; PROTHROMBIN PROTIME 11.6 SEC (9.3-11.6)
[2024-10-04 15:06] LABS: ALBUMIN(ML) 3.7 g/dL (3.4-5.0); ALBUMIN/GLOBULIN RATIO 1.057; ANION GAP 13.2; CALCIUM 9.1 mg/dL (8.4-10.5); CARBON DIOXIDE 26.5 mmol/L (20.0-32); CREATININE SERUM 1.04 mg/dL (0.59-1.40); EST GFR, NON-AA 52.4 (>/=60); POTASSIUM 4.7 mmol/L (3.6-5.2)
[2024-10-06] VITALS (23 sets, daily range): BP systolic 122–177; BP diastolic 42–80; PULSE 48–62; RESP 14–18; TEMP 96.4–98.5; O2SAT 95–100
[~2024-10-06] VITALS: Ht 170.2 cm; Wt 80.7 kg
[~2024-10-06 08:30] MED LIST changes: +ANCEF 2 GM/D5W 50ML 50 ML IV ONE; +NS 1000ML 1,000 ML ONE; +NS 3000ML IRR IR ONE; +SODIUM CHLORIDE IRR BOTTLE IR ONE; +XYLOCAINE 1%-EPI 1:100,000 ONE
[2024-10-06] MEDS: NS 1000ML 1,000 ML IV ONE (08:59)
[2024-10-06] MEDS ORDERED: OFIRMEV 1000 MG/100 ML 100 ML IV ONE (11:06)
[2024-10-06] MEDS ORDERED: DIPRIVAN IV ONE (11:07)
[2024-10-06] MEDS ORDERED: ZEMURON IV ONE (11:07)
[2024-10-06] MEDS ORDERED: SUBLIMAZE 100MCG/2ML ONE (11:07)
[2024-10-06] MEDS: ANCEF 2 GM/D5W 50ML 50 ML IV ONE (11:35)
[2024-10-06] MEDS ORDERED: ZOFRAN ONE (13:40)
[2024-10-06] MEDS: ZOFRAN IV ONE (13:48)
[2024-10-06] MEDS ORDERED: LIDOCAINE 1% VIAL ONE (13:57)
[2024-10-06] MEDS ORDERED: MARCAINE 0.5% ONE (13:57)
[2024-10-06] MEDS ORDERED: EXPAREL 266 MG/20 ML VIAL IJ ONE (13:57)
[2024-10-06] MEDS ORDERED: TRAM50TA PO (14:45)
== END 2024-10-06 16:31 | disposition home or self-care (01) ==
LOC: SDC 08:30
PROVIDERS: ATTEND Orthopaedic Surgery
DX: M19.012 Primary osteoarthritis, left shoulder (principal); M24.012 Loose body in left shoulder; J45.909 Unspecified asthma, uncomplicated; E78.5 Hyperlipidemia, unspecified; E11.9 Type 2 diabetes mellitus without complications; I20.9 Angina pectoris, unspecified; F41.9 Anxiety disorder, unspecified; I48.91 Unspecified atrial fibrillation; I10 Essential (primary) hypertension; G89.18 Other acute postprocedural pain; Z98.61 Coronary angioplasty status; Z79.4 Long term (current) use of insulin; Z90.710 Acquired absence of both cervix and uterus; Z98.890 Other specified postprocedural states; Z88.6 Allergy status to analgesic agent; Z88.5 Allergy status to narcotic agent; Z79.899 Other long term (current) drug therapy
CPT/HCPCS: 80053; 85025; 36415; 85610; 29824; 29826; 82948 ×2; J0666; J3490 ×2; J7030; A4649 ×5; A6197 ×2; J0690; J2003; A4217; J0131; J2704; J2405; J3010; C9290

== ENCOUNTER 2024-12-09 01:13 | Emergency (ER) | payer MEDICARE ==
[~2024-12-09 01:13] MED LIST changes: -ANCEF 2 GM/D5W 50ML 50 ML IV ONE; -NS 1000ML 1,000 ML ONE; -NS 3000ML IRR IR ONE; -SODIUM CHLORIDE IRR BOTTLE IR ONE; -XYLOCAINE 1%-EPI 1:100,000 ONE; +[UNRECOGNIZED DRUG - CODE] PO; -[UNRECOGNIZED DRUG - CODE] PO
== END 2024-12-09 02:43 | disposition admitted as inpatient to this hospital (09) ==
LOC: ER 01:13
DX: T14.8XXA Other injury of unspecified body region, initial encounter (principal); X58.XXXA Exposure to other specified factors, initial encounter; Y93.89 Activity, other specified; Y92.89 Other specified places as the place of occurrence of the external cause; Y99.8 Other external cause status
CPT/HCPCS: 99285; 96374; 72192; 96375; 85025; 36415; 80048; 85610; 85651; 85730; 86140; 96372; J1885; J2405; J3010; J3490

== ENCOUNTER → 2025-02-02 | Outpatient (CLI) | payer MEDICARE | END | disposition home or self-care (01) | LOC: RAD 13:47 | PROVIDERS: ATTEND Nurse Practitioner | DX: M19.011 Primary osteoarthritis, right shoulder (principal); M47.814 Spondylosis without myelopathy or radiculopathy, thoracic region; I70.0 Atherosclerosis of aorta; M25.511 Pain in right shoulder; Z98.890 Other specified postprocedural states | CPT/HCPCS: 73030-RT ==

== ENCOUNTER → 2025-05-22 | Outpatient (CLI) | payer MEDICARE ==
[~2025-05-22] MED LIST changes: -AMIT75TA PO; +AMIT75TA6 PO; +NIRM1TAB12 PO; -NIRM1TAB9 PO
== END | disposition home or self-care (01) ==
LOC: RAD 14:08
PROVIDERS: ATTEND Internal Medicine
DX: I67.82 Cerebral ischemia (principal); G45.9 Transient cerebral ischemic attack, unspecified; G31.89 Other specified degenerative diseases of nervous system
CPT/HCPCS: 70551